=== PATIENT | male | born 1935 | race Two or more races ===

== ENCOUNTER 2016-04-09 01:54 | Inpatient (IN) | payer MEDICARE ==
[~2016-04-09] VITALS: Ht 172.7 cm; Wt 63.5 kg
[~2016-04-09 01:54] MED LIST: DIVA500T7 PO; DOCU-170 PO; DONE10TA44 PO; LEVO500T15 PO; LEVO50TA8 PO; OLAN5TAB3 PO; TRAZ-147 PO
[2016-04-09] MEDS ORDERED: TDAP [DIPH/PERTUSSIS/TET] 0.5 ML VIAL IM ONE (02:30)
[2016-04-09 02:52] LABS: WHITE BLOOD COUNT (AUTO) 10.1 K/uL (4.3-11.0)
[2016-04-09 02:53] LABS: BASOPHILS % (AUTO) 0.4 % (0.0-2.0); DIFF TOTAL % 100 %; EOSINOPHILS # (AUTO) 0.2 /CMM (0.0-0.7); EOSINOPHILS % (AUTO) 2.4 % (0.0-6.0); HEMATOCRIT 36 % (39-51); HEMOGLOBIN 11.8 g/dL (13.5-17.5); LYMPHOCYTES # (AUTO) 1.9 /CMM (0.8-4.8); LYMPHOCYTES % (AUTO) 18.5 % (20.0-44.0); MEAN CORPUSCULAR HEMOGLOBIN 30 PG (26.0-33.0); MEAN CORPUSCULAR HGB CONC 32 g/dl (31.0-36.0); MEAN CORPUSCULAR VOLUME 92 fL (80-96); MONOCYTES % (AUTO) 9.7 % (2.0-12.0); PLATELET COUNT (AUTO) 222 /CMM (150-450); RED BLOOD CELL COUNT(AUTO) 3.95 MIL/uL (4.5-6.0)
[2016-04-09 03:03] LABS: INR 1.06 (0.87-1.13); PROTHROMBIN TIME 11.5 SECS (9.5-12.7)
[2016-04-09 03:07] LABS: ALANINE AMINOTRANSFERASE 15 U/L (12-78); ALBUMIN 2.9 g/dL (3.4-5.0); ANION GAP 10 (5-14); ASPARTATE AMINOTRANSFERASE 15 U/L (15-37); BILIRUBIN,DIRECT 0.1 mg/dL (0.0-0.2); BILIRUBIN,TOTAL 0.3 mg/dL (0.2-1.0); CALCIUM, SERUM 8.8 mg/dL (8.5-10.1); CARBON DIOXIDE 32 mmol/L (21-32); CHLORIDE 102 mmol/L (98-107); CREATININE 1.1 mg/dL (0.6-1.3); GLUCOSE 94 mg/dL (74-106); INDIRECT BILIRUBIN 0.2 mg/dL (0.0-1.1); POTASSIUM 4.2 mmol/L (3.5-5.1); SODIUM SERUM 140 mmol/L (136-145); TOTAL PROTEIN, SERUM 7.2 g/dL (6.4-8.2); UREA NITROGEN, BLOOD 24 mg/dL (7-18)
[2016-04-09 03:09] LABS: TROPONIN I < 0.017 ng/mL (0.00-0.056)
[2016-04-09] MEDS ORDERED: ONDANSETRON HCL/PF 4 MG/2 ML VIAL IVP PRN (04:00)
[2016-04-09] MEDS ORDERED: HYDROCODONE/APAP 5/325MG 1 EACH TABLET PO PRN (04:00)
[2016-04-09] MEDS ORDERED: MAG HYDROX/AL HYDROX/SIMETH 30 ML UDC PO PRN (04:00)
[2016-04-09] MEDS ORDERED: Z GUARD REMEDY 2 OZ OINT TP PRN (04:00)
[2016-04-09] MEDS ORDERED: MAGNESIUM HYDROXIDE 30 ML UDC PO PRN (04:00)
[2016-04-09] MEDS ORDERED: ACETAMINOPHEN 325 MG TABLET PO PRN (04:00)
[2016-04-09 08:00] VITALS: BP 119/67
[2016-04-09] MEDS: DOCUSATE SODIUM 100 MG CAPSULE PO SCH ×2 (08:19→17:16)
[2016-04-09] MEDS: PANTOPRAZOLE 40 MG TABLET.DR PO SCH (08:20)
[2016-04-09] MEDS: LEVOTHYROXINE SODIUM 50 MCG TABLET PO SCH (08:20)
[2016-04-09] MEDS: OLANZAPINE 5 MG TABLET PO SCH ×2 (08:20→17:16)
[2016-04-09] MEDS ORDERED: LEVOTHYROXINE SODIUM 50 MCG TABLET PO SCH (09:00)
[2016-04-09 10:14] VITALS: BP_SYST 111; BP_SYST 112; BP_SYST 119; BP_DIAS 59; BP_DIAS 62; BP_DIAS 68
[2016-04-09] MEDS ORDERED: IV SET PRIMARY PUMP SET 1 EA INFUS.SET MC ONE (10:48)
[2016-04-09 10:50] LABS: THYROID STIMULATING HORMONE 4.164 uIU/mL (0.358-3.74)
[2016-04-09] MEDS: IV NS 0.9% 1,000 ML IV PRN ×2 (10:55→18:15)
[2016-04-09 12:00] VITALS: BP 106/60
[2016-04-09 16:00] VITALS: BP 132/80
[2016-04-09] MEDS: DIVALPROEX SODIUM 500 MG TABLET.DR PO SCH (17:16)
[2016-04-09] MEDS: DONEPEZIL 5 MG TABLET PO SCH (17:16)
[2016-04-09 20:00] VITALS: BP 152/69
[2016-04-09] MEDS: TRAZODONE 50 MG TABLET PO SCH (22:06)
[2016-04-10] VITALS: BP 123/66
[2016-04-10 04:00] VITALS: BP 130/57
[2016-04-10] MEDS: IV NS 0.9% 1,000 ML IV PRN ×2 (06:22→19:12)
[2016-04-10 07:07] LABS: BASOPHILS % (AUTO) 0.5 % (0.0-2.0); DIFF TOTAL % 100 %; EOSINOPHILS # (AUTO) 0.2 /CMM (0.0-0.7); EOSINOPHILS % (AUTO) 3.4 % (0.0-6.0); HEMATOCRIT 34 % (39-51); HEMOGLOBIN 11.2 g/dL (13.5-17.5); LYMPHOCYTES # (AUTO) 1.9 /CMM (0.8-4.8); LYMPHOCYTES % (AUTO) 26.1 % (20.0-44.0); MEAN CORPUSCULAR HEMOGLOBIN 30 PG (26.0-33.0); MEAN CORPUSCULAR HGB CONC 33 g/dl (31.0-36.0); MEAN CORPUSCULAR VOLUME 91 fL (80-96); MONOCYTES # (AUTO) 0.8 /CMM (0.1-1.30); MONOCYTES % (AUTO) 11.3 % (2.0-12.0); NEUTROPHILS # (AUTO) 4.3 /CMM (1.8-8.9); NEUTROPHILS % (AUTO) 58.7 % (43.0-81.0); PLATELET COUNT (AUTO) 185 /CMM (150-450); RED BLOOD CELL COUNT(AUTO) 3.69 MIL/uL (4.5-6.0); WHITE BLOOD COUNT (AUTO) 7.4 K/uL (4.3-11.0)
[2016-04-10 07:28] LABS: ALBUMIN 2.4 g/dL (3.4-5.0); BILIRUBIN,TOTAL 0.3 mg/dL (0.2-1.0); CALCIUM, SERUM 8.2 mg/dL (8.5-10.1); CREATININE 0.9 mg/dL (0.6-1.3); PHOSPHORUS 3.2 mg/dL (2.5-4.9); POTASSIUM 4.4 mmol/L (3.5-5.1); TOTAL PROTEIN, SERUM 6.4 g/dL (6.4-8.2)
[2016-04-10 08:00] VITALS: BP 132/69
[2016-04-10] MEDS: OLANZAPINE 5 MG TABLET PO SCH ×2 (08:46→17:08)
[2016-04-10] MEDS: LEVOTHYROXINE SODIUM 50 MCG TABLET PO SCH (08:46)
[2016-04-10] MEDS: DOCUSATE SODIUM 100 MG CAPSULE PO SCH ×2 (08:46→16:38)
[2016-04-10] MEDS: PANTOPRAZOLE 40 MG TABLET.DR PO SCH (08:46)
[2016-04-10 15:57] VITALS: BP 103/63
[2016-04-10 16:00] VITALS: BP 103/63
[2016-04-10] MEDS: DIVALPROEX SODIUM 500 MG TABLET.DR PO SCH (17:08)
[2016-04-10] MEDS: DONEPEZIL 5 MG TABLET PO SCH (17:08)
[2016-04-10 20:00] VITALS: BP_SYST 120; BP_SYST 123; BP_DIAS 51; BP_DIAS 61; BP_DIAS 74
[2016-04-10] MEDS: TRAZODONE 50 MG TABLET PO SCH (21:12)
[2016-04-11] MEDS: ZOLPIDEM TARTRATE 5 MG TABLET PO PRN ×2 (02:15→22:53)
[2016-04-11] MEDS ORDERED: ALBUTEROL FS 2.5 MG/0.5 ML VIAL.NEB ONE (03:40)
[2016-04-11] MEDS: ALBUTEROL FS 2.5 MG/0.5 ML VIAL.NEB NEB PRN ×2 (03:51→22:56)
[2016-04-11] MEDS: IV NS 0.9% 1,000 ML IV PRN ×2 (05:05→15:12)
[2016-04-11 07:43] VITALS: BP 139/71
[2016-04-11 08:00] VITALS: BP 139/71
[2016-04-11 08:08] LABS: *SPE ALBUMIN 2.9 g/dL (2.9-4.4)
[2016-04-11 08:11] LABS: ALBUMIN 2.5 g/dL (3.4-5.0); BILIRUBIN,TOTAL 0.3 mg/dL (0.2-1.0); CREATININE 0.9 mg/dL (0.6-1.3); PHOSPHORUS 2.9 mg/dL (2.5-4.9); POTASSIUM 4.3 mmol/L (3.5-5.1); TOTAL PROTEIN, SERUM 6.6 g/dL (6.4-8.2)
[2016-04-11] MEDS: PANTOPRAZOLE 40 MG TABLET.DR PO SCH (08:14)
[2016-04-11] MEDS: OLANZAPINE 5 MG TABLET PO SCH ×2 (08:14→17:19)
[2016-04-11] MEDS: LEVOTHYROXINE SODIUM 50 MCG TABLET PO SCH (08:14)
[2016-04-11] MEDS: DOCUSATE SODIUM 100 MG CAPSULE PO SCH ×2 (08:14→17:19)
[2016-04-11 08:33] LABS: BASOPHILS % (AUTO) 0.3 % (0.0-2.0); DIFF TOTAL % 100 %; EOSINOPHILS # (AUTO) 0.2 /CMM (0.0-0.7); EOSINOPHILS % (AUTO) 2.9 % (0.0-6.0); HEMATOCRIT 34 % (39-51); HEMOGLOBIN 11.2 g/dL (13.5-17.5); LYMPHOCYTES # (AUTO) 1.3 /CMM (0.8-4.8); LYMPHOCYTES % (AUTO) 18.2 % (20.0-44.0); MEAN CORPUSCULAR HEMOGLOBIN 31 PG (26.0-33.0); MEAN CORPUSCULAR HGB CONC 33 g/dl (31.0-36.0); MEAN CORPUSCULAR VOLUME 92 fL (80-96); MONOCYTES # (AUTO) 0.8 /CMM (0.1-1.30); MONOCYTES % (AUTO) 10.8 % (2.0-12.0); NEUTROPHILS % (AUTO) 67.8 % (43.0-81.0); PLATELET COUNT (AUTO) 176 /CMM (150-450); RED BLOOD CELL COUNT(AUTO) 3.68 MIL/uL (4.5-6.0); WHITE BLOOD COUNT (AUTO) 7.3 K/uL (4.3-11.0)
[2016-04-11] MEDS ORDERED: SECONDARY IV SET 1 EA INFUS.SET MC ONE (10:50)
[2016-04-11] MEDS: Magnesium 1GM/D5W 100ML PREMIX 100 ML IV SCH ×2 (10:55→11:57)
[2016-04-11] MEDS ORDERED: Magnesium 1GM/D5W 100ML PREMIX 100 ML IV SCH (13:00)
[2016-04-11 16:00] VITALS: BP 150/78
[2016-04-11] MEDS: DIVALPROEX SODIUM 500 MG TABLET.DR PO SCH (17:19)
[2016-04-11] MEDS: DONEPEZIL 5 MG TABLET PO SCH (17:19)
[2016-04-11 20:00] VITALS: BP 120/74
[2016-04-11] MEDS: TRAZODONE 50 MG TABLET PO SCH (21:22)
[2016-04-11 22:00] VITALS: BP 120/74
[2016-04-12] MEDS: IV NS 0.9% 1,000 ML IV PRN ×2 (00:14→09:31)
[2016-04-12 07:52] LABS: BASOPHILS % (AUTO) 0.6 % (0.0-2.0); DIFF TOTAL % 100 %; EOSINOPHILS # (AUTO) 0.3 /CMM (0.0-0.7); EOSINOPHILS % (AUTO) 4.3 % (0.0-6.0); HEMATOCRIT 34 % (39-51); HEMOGLOBIN 11.2 g/dL (13.5-17.5); LYMPHOCYTES # (AUTO) 1.9 /CMM (0.8-4.8); LYMPHOCYTES % (AUTO) 30.5 % (20.0-44.0); MEAN CORPUSCULAR HEMOGLOBIN 31 PG (26.0-33.0); MEAN CORPUSCULAR HGB CONC 33 g/dl (31.0-36.0); MEAN CORPUSCULAR VOLUME 92 fL (80-96); MONOCYTES # (AUTO) 0.6 /CMM (0.1-1.30); NEUTROPHILS # (AUTO) 3.5 /CMM (1.8-8.9); NEUTROPHILS % (AUTO) 55.6 % (43.0-81.0); PLATELET COUNT (AUTO) 173 /CMM (150-450); RED BLOOD CELL COUNT(AUTO) 3.64 MIL/uL (4.5-6.0); WHITE BLOOD COUNT (AUTO) 6.3 K/uL (4.3-11.0)
[2016-04-12] MEDS: DOCUSATE SODIUM 100 MG CAPSULE PO SCH (08:11)
[2016-04-12] MEDS: LEVOTHYROXINE SODIUM 50 MCG TABLET PO SCH (08:11)
[2016-04-12] MEDS: OLANZAPINE 5 MG TABLET PO SCH (08:11)
[2016-04-12] MEDS: PANTOPRAZOLE 40 MG TABLET.DR PO SCH (08:11)
[2016-04-12 08:24] LABS: CALCIUM, SERUM 8.2 mg/dL (8.5-10.1); CREATININE 0.9 mg/dL (0.6-1.3); PHOSPHORUS 3.3 mg/dL (2.5-4.9); POTASSIUM 4.8 mmol/L (3.5-5.1)
[2016-04-12 08:39] VITALS: BP 136/76
== END 2016-04-12 15:17 | DRG 73 ==
LOC: ER 01:56 → TELE 05:01 → MED 04-10 09:45
PROVIDERS: ADMIT Internal Medicine; ATTEND Internal Medicine
DX: G90.8 Other disorders of autonomic nervous system (principal); E43 Unspecified severe protein-calorie malnutrition; S01.01XA Laceration without foreign body of scalp, initial encounter; G30.9 Alzheimer's disease, unspecified; W05.0XXA Fall from non-moving wheelchair, initial encounter; Y92.129 Unspecified place in nursing home as the place of occurrence of the external cause; R55 Syncope and collapse; D64.9 Anemia, unspecified; I25.10 Atherosclerotic heart disease of native coronary artery without angina pectoris; F02.80 Dementia in other diseases classified elsewhere, unspecified severity, without behavioral disturbance, psychotic disturbance, mood disturbance, and anxiety; E03.9 Hypothyroidism, unspecified; I10 Essential (primary) hypertension; Z68.21 Body mass index [BMI] 21.0-21.9, adult; Z68.27 Body mass index [BMI] 27.0-27.9, adult
CPT/HCPCS: 36415; 70450-TC; 71010-TC; 72125-TC; 80048-TC; 80053-TC; 80061-TC; 80076-TC; 82728-TC; 82962-TC; 83540-TC; 83735-TC; 84100-TC; 84155; 84165; 84439-TC; 84443-TC; 84484-TC; 85025-TC; 85730-TC; 87081-TC; 93307-TC; 94799-TC; A4606; A6403; J3475; J7030; Z7610

== ENCOUNTER 2017-03-31 21:05 | Inpatient (IN) | payer MEDICARE, OTHER ==
[~2017-03-31] VITALS: Ht 175.3 cm; Wt 46.3 kg
[~2017-03-31 21:05] MED LIST changes: -DOCU-170 PO; +DOCU100C36 PO; -LEVO500T15 PO; +LEVO500T75 PO
--- NOTE | 2017-03-31 21:15 | NUR ---
PT CAROLE FROM [facility]. HERE FOR MEDICAL EVAL PRIOR TO PSYCH ADMISSION. PER REPORT, PT IS AGRESSIVE, CONFUSED. HITTING STAFF AT THE FACILITY. WAS GIVEN IM SHOT OF ATIVAN PRIOR TO TRANSFER. PT STILL COMBATIVE MEDICAL NURSE. AWAITING MD MCKENZIE.
--- NOTE | 2017-03-31 21:25 | NUR ---
DR ZENG AT BEDSIDE FOR EVAL.
[2017-03-31] MEDS ORDERED: LORAZEPAM INJ 2 MG/ML VIAL ONE (21:39)
--- NOTE | 2017-03-31 21:45 | NUR ---
VIRTUAL ASSISTANT FOR ADVERTISERS AT BEDSIDE FOR BLOOD DRAW.
[2017-03-31 21:48] LABS: BASOPHILS # (AUTO) 0.1 /CMM (0.0-0.2); BASOPHILS % (AUTO) 0.7 % (0.0-2.0); EOSINOPHILS # (AUTO) 0.1 /CMM (0.0-0.7); EOSINOPHILS % (AUTO) 1.1 % (0.0-6.0); HEMATOCRIT 26 % (39-51); HEMOGLOBIN 8.8 g/dL (13.5-17.5); LYMPHOCYTES # (AUTO) 2.3 /CMM (0.8-4.8); LYMPHOCYTES % (AUTO) 23.2 % (20.0-44.0); MEAN CORPUSCULAR HEMOGLOBIN 29 PG (26.0-33.0); MEAN CORPUSCULAR HGB CONC 34 g/dl (31.0-36.0); MEAN CORPUSCULAR VOLUME 84 fL (80-96); MONOCYTES # (AUTO) 0.7 /CMM (0.1-1.30); NEUTROPHILS # (AUTO) 6.5 /CMM (1.8-8.9); PLATELET COUNT (AUTO) 258 /CMM (150-450); RDW COEFFICIENT OF VARIATION 14.7 (11.5-15.0); RED BLOOD CELL COUNT(AUTO) 3.08 MIL/uL (4.5-6.0); WHITE BLOOD COUNT (AUTO) 9.7 K/uL (4.3-11.0)
[2017-03-31] MEDS ORDERED: LORAZEPAM INJ 2 MG/ML VIAL IM ONE (22:00)
--- NOTE | 2017-03-31 22:13 | NUR ---
PT IS STILL AGITATED. TRYING TO GET OUT OF BED. HITTING STAFF. DR ZENG AWARE. MEDICATED ORDERED. SEE EMAR.
[2017-03-31 22:36] LABS: CARBON DIOXIDE 30 mmol/L (21-32); CHLORIDE 103 mmol/L (98-107); CREATININE 0.8 mg/dL (0.6-1.3); GLUCOSE 102 mg/dL (74-106); POTASSIUM 4.3 mmol/L (3.5-5.1); SODIUM SERUM 137 mmol/L (136-145); UREA NITROGEN, BLOOD 33 mg/dL (7-18)
[2017-03-31 22:39] LABS: ALCOHOL, BLOOD < 3 mg/dL (0-0)
[2017-03-31 22:55] LABS: APPEARANCE,URINE CLEAR (CLEAR); BILIRUBIN,URINE NEGATIVE (NEGATIVE); BLOOD, URINE TRACE-INTA Ery/uL (NEGATIVE); COLOR,URINE YELLOW (YELLOW); KETONES,URINE NEGATIVE (NEGATIVE); LEUKOCYTE ESTERASE ,URINE 2+ (NEGATIVE); NITRITE, URINE NEGATIVE (NEGATIVE); PROTEIN,URINE NEGATIVE (NEGATIVE); UGLUCOSE NEGATIVE (NEGATIVE); UROBILINOGEN,URINE 0.2 EU/dL (0.2)
--- NOTE | 2017-03-31 23:24 | NUR ---
CALLED ART CLINICIAN FOR PSYCH EVAL
[2017-03-31 23:34] LABS: BACTERIA,URINE None seen /HPF (None Seen)
[2017-03-31 23:35] LABS: SQUAMOUS EPITHELIAL CELL,UR Rare /HPF (None Seen)
--- NOTE | 2017-03-31 23:47 | NUR ---
REPORT TO CHARGE NURSE CHERYL FOR ALEXEI.
[2017-04-01] MEDS ORDERED: CIPROFLOXACIN HCL 500 MG TABLET PO ONE
[2017-04-01] MEDS ORDERED: CIPROFLOXACIN HCL 500 MG TABLET ONE (00:29)
[2017-04-01] MEDS ORDERED: IV NS 0.9% 1,000 ML IV ONE (00:30)
[2017-04-01] MEDS ORDERED: HYDROCODONE/APAP 5/325MG 1 EACH TABLET PO PRN ×2 (00:30→09:15)
[2017-04-01] MEDS ORDERED: ONDANSETRON HCL/PF 4 MG/2 ML VIAL IVP PRN ×2 (00:30→09:15)
[2017-04-01] MEDS ORDERED: MAG HYDROX/AL HYDROX/SIMETH 30 ML UDC PO PRN ×2 (00:30→09:15)
[2017-04-01] MEDS ORDERED: ZOLPIDEM TARTRATE 5 MG TABLET PO PRN ×2 (00:30→09:15)
[2017-04-01] MEDS ORDERED: MAGNESIUM HYDROXIDE 30 ML UDC PO PRN ×2 (00:30→09:15)
[2017-04-01] MEDS ORDERED: ACETAMINOPHEN 325 MG TABLET PO PRN ×2 (00:30→09:15)
[2017-04-01] MEDS ORDERED: Z GUARD REMEDY 2 OZ OINT TP PRN ×2 (00:30→09:15)
--- NOTE | 2017-04-01 02:33 | NUR ---
81 Y/O IN BED 09 REMAINS CONFUSED. PT DIAPER VERY WET. PT CLEANED, SHEETS CHANGED, PADS PUT IN PLACE, AND NEW DIAPER PLACED ON PT. PT APPERS LESS AGITATED AFTER CHANGE.
--- NOTE | 2017-04-01 03:17 | NUR ---
PT CONTINUES TO TRY TO GET OUT OF BED, INSPITE OF THE RESTRAINTS
--- NOTE | 2017-04-01 03:30 | NUR ---
PT BECOMES VERY AGITATED WHEN TRYING TO START IV. ATTEMPTS TO HIT YOU WITH HIS HEAD. DIGS INTO HIS OWN HAND WITH HIS FINGER NAILS. ATTEMPTS TO KICK YOU.
[2017-04-01] MEDS ORDERED: CEFTRIAXONE 1 G VIAL ONE ×2 (05:27→23:16)
[2017-04-01] MEDS: CEFTRIAXONE 1 G in IV D5W 50 ML IV SCH ×2 (06:16→23:46)
--- NOTE | 2017-04-01 06:17 | NUR ---
IV FINALLY OBTAINED. ROCEPHIN GIVEN
[2017-04-01] MEDS ORDERED: LORAZEPAM INJ 2 MG/ML VIAL ONE (06:23)
[2017-04-01] MEDS ORDERED: LORAZEPAM INJ 2 MG/ML VIAL IM ONE (06:30)
--- NOTE | 2017-04-01 06:30 | NUR ---
ATIVAN GIVEN IV PER ER .
--- NOTE | 2017-04-01 08:31 | NUR ---
Patient is resting comfortably in bed with eyes closed. Easily aroused. VSS.
[2017-04-01] MEDS ORDERED: OLANZAPINE 5 MG TABLET ONE (09:03)
[2017-04-01] MEDS ORDERED: DOCUSATE SODIUM LIQ 100 MG/10 ML UDC ONE (09:03)
[2017-04-01] MEDS: DOCUSATE SODIUM 100 MG CAPSULE PO SCH ×2 (09:05→17:30)
[2017-04-01] MEDS: OLANZAPINE 5 MG TABLET PO SCH ×2 (09:06→17:30)
--- NOTE | 2017-04-01 10:28 | NUR ---
R FA G 20 IV SALINE LOCK
--- NOTE | 2017-04-01 10:34 | NUR ---
REPORT GIVEN TO NURSE CHARLES [phone] MS
--- NOTE | 2017-04-01 11:10 | NUR ---
MS/RN ADMITTING NOTES RECEIVED PATIENT FROM ER VIA [facility] WITH ADMITTING DIAGNOSIS OF UTI, PAST MEDICAL HISTORY OF DEMENTIA WITH ALZHEIMER, HTN, SCHIZOPHRENIA, ANEMIA, HYPOTHYROIDISM. UPON ASSESSMENT PATIENT ALERT AND ORIENTED X1, DEMENTED UNABLE TO VERBALIZED NEEDS, APPEARS SLIGHTLY AGITATED. TRACH IN PERSON WITH NO 02 ON ROOM AIR SATING 99%. VITAL SIGNS STABLE AND WNL. GTUBE IN PLACE WITH NO FEEDINGS AT THIS TIME. IV TO RIGHT FA 22G INTACT INFUSING NS FOR GENTLE HYDRATION. PATIENT BEDBOUND, UPPER EXT CONTRACTED, LOW EXT WEAKENS, MULTIPLE SKIN TEARS TO BILATERAL UPPER EXT AND HAND. ADMITTING ORDERS PENDING. WILL CONTINUE TO MONITOR
--- NOTE | 2017-04-01 13:36 | NUR ---
ms rn notes Spoke to Larry MCBRIDE regarding patient feeding and ordered fibersource @20 ml/hr and to increase 10 every 4 hrs to reach goal of 40ml/hr and for dietary consult, psych consult ordered and informed Dr. Valladares. All orders carried out and noted. Will continue to monitor accordingly.
--- NOTE | 2017-04-01 15:40 | NUR ---
ms rn notes Spoke to Larry MCBRIDE and informed regarding patient condition who is agitated and ordered Ativan 0.5 mg IV Q4hrs PRN. All orders carried out and noted. Will continue to monitor accordingly.
[2017-04-01 16:00] VITALS: BP 109/60
[2017-04-01] MEDS: LORAZEPAM INJ 2 MG/ML VIAL IV PRN ×2 (16:01→20:28)
[2017-04-01] MEDS ORDERED: OLANZAPINE 5 MG TABLET PO SCH (18:00)
[2017-04-01] MEDS ORDERED: DIVALPROEX SODIUM 500 MG TABLET.DR PO SCH ×2 (18:00)
--- NOTE | 2017-04-01 18:41 | NUR ---
MS/RN NOTS PATIENT RESTING IN BED AGITATED, RESTLESS, CONSTANTLY TRYING TO GET OUT OF BED, GETS COMBATIVE WHEN ASSISTING BACK TO BED, YELLING. NO CHANGES OF CONDITION NOTED. ALL DUE MEDICATIONS GIVEN ALL NEEDS MET AND ATTENDED. PATIENT KEPT CLEAN AND DRY,GTUBE FEEDING INFUSING AT 30CC/HR. SAFETY MEASURES RENDERED , CALL LIGHT PLACED WITHIN EASY REACH. WILL ENDORSE CARE TO BUSINESS PROJECT ANALYST FOR ALEXEI
--- NOTE | 2017-04-01 19:15 | NUR ---
RN OPEN NOTES RECEIVED PATIENT AWAKE IN BED. A/O X1. PATIENT PRESENTS CONFUSED, AGITATED AND REPEATED ATTEMPTING TO GET OUT OF BED. NO SIGNS OF DISTRESS OR DISCOMFORT. BREATHING EVEN AND UNLABORED. IV ACCESS RFA, PATENT AND INTACT, NO SIGNS OF REDNESS OR INFILTRATION. BED IN LOW LOCKED POSITION WITH SIDE RAILS X3. CALL LIGHT WITHIN REACH. WILL CONTINUE TO MONITOR.
[2017-04-01 20:00] VITALS: BP_SYST 131; BP_SYST 61; BP_DIAS 61
--- NOTE | 2017-04-01 21:00 | NUR ---
RN NOTES PATIENT VERY AGITATED, CONTINUOUSLY ATTEMPTING TO GET OF BED, VERY COMBATIVE HITTING AND KICKING WHEN TRYING TO ASSIST PATIENT BACK INTO THE BED. ATIVAN .5MG WAS GIVEN FOR AGITATION. NOTIFIED DR. DE SANTIAGO, ORDER GIVEN FOR BILATERAL WRIST RESTRAINTS. WILL CARRYOUT ORDERS AND CONTINUE TO MONITOR.
[2017-04-01] MEDS ORDERED: DONEPEZIL 5 MG TABLET PO SCH (22:00)
[2017-04-01] MEDS ORDERED: TRAZODONE 50 MG TABLET PO SCH (22:00)
[2017-04-02] MEDS: LORAZEPAM INJ 2 MG/ML VIAL IV PRN ×3 (05:08→23:58)
[2017-04-02] MEDS: FIBERSOURCE HN 1,000 ML BOTTLE GT PRN (05:09)
--- NOTE | 2017-04-02 06:44 | NUR ---
RN CLOSING NOTES PATIENT RESTING IN BED, EASILY AROUSABLE. A/O X1. NO SIGNS OF DISTRESS OR DISCOMFORT. BREATHING EVEN AND UNLABORED. IV ACCESS RFA, PATENT AND INTACT, NO SIGNS OF REDNESS OR INFILTRATION. GTUBE INTACT WITH FEEDING RUNNING, PATIENT TOLERATING WELL WITH NO RESIDUAL NOTED THROUGHOUT SHIFT. ON BILATERAL SOFT WRIST RESTRAINTS WITH NO CIRCULATION OR SKIN ISSUES NOTED. ALL NEEDS MET. NO SIGNIFICANT CHANGES THROUGH THE NIGHT. BED IN LOW LOCKED POSITION WITH SIDE RAILS X3. CALL LIGHT WITHIN REACH. WILL ENDORSE TO AM SHIFT FOR ALEXEI.
[2017-04-02 08:00] VITALS: BP 130/74
--- NOTE | 2017-04-02 08:00 | NUR ---
RN NOTES RECEIVED PATIENT IN THE BED SLEEPING, AROUSE WHEN CALLED NAME OR TOUCHED, PATIENT TRACHEA , INTACT, HOB ELEVATES, . PATIENT ON G-TUBE FEEDING ON FIBERSOURCE 60ML/HR INTACT, RESIDUAL 50ML, AND PLACEMENT CHECKED, IV ACCESS ON RIGHT FOREARM INTACT, V/S TAKEN STABLE, PATIENT TOTAL CARE, NEEDS ATTENDED ANTICIPATED, ASSIST TURN AND REPOSITION Q 2 HR, CALL LIGHT WITHIN TO REACH. CONTINUED MONITORING.
--- NOTE | 2017-04-02 08:00 | NUR ---
RN NOTES PATIENT ALSO SOFT WRIST RESTRAIN BILATERAL WRIST, CHECKED CIRCULATION Q 2 HR FOR PULING TRACHEA, AND TRYING CLAIMING OUT OF BED. CONTINUED MONITORING.
[2017-04-02] MEDS: DOCUSATE SODIUM 100 MG CAPSULE PO SCH ×2 (10:00→18:03)
[2017-04-02] MEDS: OLANZAPINE 5 MG TABLET PO SCH ×2 (10:00→18:03)
--- NOTE | 2017-04-02 12:53 | NUR ---
RN NOTES PATIENT STILL SLEEPING, NO ACUTE RESPIRATORY DISTRESS, SCHEDULED MEDICATION ADMINISTERED VIA G-TUBE, PATIENT TOLERATED WELL, ASSIST TURN AND REPOSITION Q 2 HR, CALL LIGHT WITHIN TO REACH, HOB ELEVATED, CONTINUED MONITORING WITH HELP OF LINE INSTALLER.
[2017-04-02 16:00] VITALS: BP 118/70
--- NOTE | 2017-04-02 16:00 | NUR ---
RN NOTES PATIENT YELLING , SCREAMING TRYING GET OUT OF BED, , NON COOPERATIVE, PARANOID, ADMINISTERED ATIVAN 0.5 MG/ML IV PUSH PRESCRIBED, V/S TAKEN BP- 120/53, P-72. CONTINUED MONITORING. 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
--- NOTE | 2017-04-02 16:55 | NUR ---
RN NOTES PATIENT PULL TRACHEA OUT, CALLED RT FOR PUT IT BACK. BUT UNABLE TO DO IT PATIENT HAS NO RESPIRATORY DISTRESS,, RESPIRATION EVEN, LUNGS SOUNDS EVEN, , CALLED AND NOTIFIED Dr. TERAN ABOUT PATIENT'S CONDITION. PER DR CROSS NEW ORDER CONTINUE MONITORING.
[2017-04-02] MEDS ORDERED: VALPROIC ACID 250 MG/5 ML UDC GT SCH (18:00)
[2017-04-02] MEDS ORDERED: ZOLPIDEM TARTRATE 5 MG TABLET GT PRN (18:08)
[2017-04-02] MEDS ORDERED: MAGNESIUM HYDROXIDE 30 ML UDC GT PRN (18:09)
[2017-04-02] MEDS ORDERED: MAG HYDROX/AL HYDROX/SIMETH 30 ML UDC GT PRN (18:10)
[2017-04-02] MEDS: VALPROIC ACID 250 MG/5 ML UDC GT SCH (18:39)
--- NOTE | 2017-04-02 19:00 | NUR ---
RN NOTES PATIENT IN THE BED, NO ACUTE RESPIRATORY DISTRESS, SCHEDULED MEDICATION ADMINISTERED VIA G-TUBE, V/S STABLE, HOB ELEVATED, PATIENT ON MRSA OF NARES. PATIENT ON SOFT RESTRAIN BILATERAL HANDS, CHECKED CIRCULATION Q2 HR, NEEDS ATTENDED AND ANTICIPATED, MEDICATION WERE GIVEN FOR ANXIETY EFFECTIVE, PATIENT CALM AT THIS TIME, CALL LIGHT WITHIN TO REACH, CONTINUED MONITORING. ENDORSED ONCOMING NURSE FOR ALEXEI.
--- NOTE | 2017-04-02 19:20 | NUR ---
RN OPEN NOTES RECEIVED PATIENT AWAKE IN BED. A/O X1. NO SIGNS OF DISTRESS OR DISCOMFORT. BREATHING EVEN AND UNLABORED. PER AM SHIFT PATIENT REMOVED MD HERNÁN AWARE. IV ACCESS RFA, PATENT AND INTACT, NO SIGNS OF REDNESS OR INFILTRATION. ON BILATERAL SOFT WRIST RESTRAINTS WITH NO SKIN OR CIRCULATION ISSUES NOTED. GTUBE INTACT WITH FEEDING RUNNING, PATIENT TOLERATING WELL. BED IN LOW LOCKED POSITION WITH SIDE RAILS X3. CALL LIGHT WITHIN REACH. WILL CONTINUE TO MONITOR.
[2017-04-02 20:00] VITALS: BP 113/66
[2017-04-02] MEDS: DONEPEZIL 5 MG TABLET GT SCH (21:48)
[2017-04-02] MEDS: TRAZODONE 50 MG TABLET GT SCH (21:48)
[2017-04-02] MEDS: MUPIROCIN OINT 2% 22 GM TUBE SCH (21:48)
[2017-04-02] MEDS: CEFTRIAXONE 1 G in IV D5W 50 ML IV SCH (23:53)
[2017-04-03] MEDS: FIBERSOURCE HN 1,000 ML BOTTLE GT PRN (02:28)
--- NOTE | 2017-04-03 03:35 | NUR ---
MS RN NOTE RECEIVED PT FROM 3RD FLOOR. ASLEEP, AROUSABLE. NO DISTRESS OR DISCOMFORT NOTED. NO S/S OF PAIN NOTED. PT IN ISOLATION FOR MRSA NARES. GTF FIBERSOURCE INFUSING AT 40 ML/HR. TRACH SITE IS OPEN. PT IS ON BILATERAL SOFT WRIST RESTRAINTS. KEPT HIM DRY AND CLEAN. ALL NEEDS ATTENDED. VSS. CONTINUE TO MONITOR HIM. Addendum: 04/03/17 at 0406 by MARLENE HERNANDEZ RN REPORT GIVEN TO ME BY MED SURG NURSE JAKOB.
--- NOTE | 2017-04-03 03:46 | NUR ---
RN CLOSING NOTES TRANSFERRED PATIENT IN STABLE CONDITION TO MARLENE RN IN [place]. PATIENT RESTING IN BED, EASILY AROUSABLE. A/O X1. NO SIGNS OF DISTRESS OR DISCOMFORT. BREATHING EVEN AND UNLABORED. IV ACCESS IN RFA, PATENT AND INTACT, NO SIGNS OF REDNESS OR INFILTRATION. ON BILATERAL SOFT WRIST RESTRAINTS WITH NO SKIN OR CIRCULATION ISSUES NOTED. GTUBE INTACT WITH FEEDING RUNNING, PATIENT TOLERATING WELL, NO RESIDUAL NOTED. ALL PATIENT BELONGINGS WITH PATIENT. ALL NEED WERE MET AND ANTICIPATED.
[2017-04-03 04:00] VITALS: BP 94/61
--- NOTE | 2017-04-03 06:33 | NUR ---
MS RN NOTE PT IN BED ASLEEP, AROUSABLE. CONFUSED. NO DISTRESS OR DISCOMFORT NOTED. GTF INFUSING WELL 0 ML RESIDUAL NOTED. REPOSITION HIM Q2H, KEPT HIM DRY AND CLEAN. ALL NEEDS ATTENDED. SIDE RAILS UP X3 AND CALL LIGHT WITHIN REACH. WILL ENDORSE TO DAY SHIFT NURSE FOR CONTINUE TO CARE.
--- NOTE | 2017-04-03 07:30 | NUR ---
MS RN NOTES RECEIVED PATIENT IN BED ASLEEP, AROUSES TO NAME AND TOUCH, AO X 1, PATIENT WITH TRACHEA STOMA, CDI DRESSING, HOB ELEVATES, NO SIGNS OF PAIN, RFA G 20 FLUSHES WELL, SITE CLEAR, PATIENT ON G-TUBE FEEDING ON FIBERSOURCE 40ML/HR INTACT, RESIDUAL 0ML, PLACEMENT CHECKED, ON ACUTE MEDICAL RESTRAINT, CHECKED FOR CIRCULATION, WILL RELEASE Q 2HOURS. NEEDS ATTENDED ANTICIPATED, WILL ASSIST TURN AND REPOSITION Q 2 HR, CALL LIGHT WITHIN TO REACH. WILL CONTINUE TO MONITOR.
[2017-04-03 08:00] VITALS: BP 119/61
--- NOTE | 2017-04-03 09:30 | NUR ---
MS RN NOTES DUE MEDS GIVEN.
[2017-04-03] MEDS: OLANZAPINE 5 MG TABLET GT SCH ×2 (09:47→17:54)
[2017-04-03] MEDS: DOCUSATE SODIUM LIQ 100 MG/10 ML UDC GT SCH ×2 (09:47→17:55)
[2017-04-03] MEDS: VALPROIC ACID 250 MG/5 ML UDC GT SCH ×3 (09:47→17:55)
[2017-04-03] MEDS: MUPIROCIN OINT 2% 22 GM TUBE SCH ×2 (09:47→22:23)
[2017-04-03] MEDS: LORAZEPAM INJ 2 MG/ML VIAL IV PRN ×2 (14:46→21:03)
[2017-04-03 16:00] VITALS: BP 122/50
--- NOTE | 2017-04-03 18:53 | NUR ---
MS RN CLOSING NOTES PATIENT IN BED,CONFUSED, REMOVING HOSPITAL GOWN AND ATTEMPTING TO GET OUT OF BED DESPITE RESTRAINT. ASLEEP, AO X 1, PATIENT WITH TRACHEA STOMA, CDI DRESSING, HOB ELEVATES, NO SIGNS OF PAIN, RFA G 20 FLUSHES WELL, SITE CLEAR, PATIENT ON G-TUBE FEEDING ON FIBERSOURCE 40ML/HR INTACT, RESIDUAL 0ML, PLACEMENT CHECKED, ON ACUTE MEDICAL RESTRAINT, CHECKED FOR CIRCULATION, RELEASED Q 2HOURS. NEEDS ATTENDED, TURNED AND REPOSITIONED Q 2 HR, PM CARE DONE. CALL LIGHT WITHIN TO REACH. NO OTHER SIGNIFICANT CHANGE IN CONDITION. WILL ENDORSE TO NEXT SHIFT FOR ALEXEI.
--- NOTE | 2017-04-03 19:30 | NUR ---
Received patient in the bed.No unusual signs or symptoms observed or reported,no signs of discomfort or distress,resting quietly.
[2017-04-03 20:00] VITALS: BP 127/68
[2017-04-03] MEDS: OLANZAPINE 2.5 MG TABLET GT PRN (20:55)
[2017-04-03] MEDS: DONEPEZIL 5 MG TABLET GT SCH (22:00)
[2017-04-03] MEDS: TRAZODONE 50 MG TABLET GT SCH (22:45)
--- NOTE | 2017-04-03 23:00 | NUR ---
resting quietly,no problems
--- NOTE | 2017-04-04 01:00 | NUR ---
transferred to Room 105,no problems
[2017-04-04] MEDS: CEFTRIAXONE 1 G in IV D5W 50 ML IV SCH ×2 (02:00→23:36)
--- NOTE | 2017-04-04 03:00 | NUR ---
resting quietly,no problems
[2017-04-04 04:00] VITALS: BP 138/75
[2017-04-04 06:34] LABS: BASOPHILS % (AUTO) 0.5 % (0.0-2.0); EOSINOPHILS # (AUTO) 0.2 /CMM (0.0-0.7); EOSINOPHILS % (AUTO) 3.6 % (0.0-6.0); HEMATOCRIT 32 % (39-51); HEMOGLOBIN 10.6 g/dL (13.5-17.5); LYMPHOCYTES # (AUTO) 1.9 /CMM (0.8-4.8); LYMPHOCYTES % (AUTO) 29.9 % (20.0-44.0); MEAN CORPUSCULAR HEMOGLOBIN 29 PG (26.0-33.0); MEAN CORPUSCULAR HGB CONC 34 g/dl (31.0-36.0); MEAN CORPUSCULAR VOLUME 87 fL (80-96); MONOCYTES # (AUTO) 0.6 /CMM (0.1-1.30); MONOCYTES % (AUTO) 9.5 % (2.0-12.0); NEUTROPHILS # (AUTO) 3.5 /CMM (1.8-8.9); NEUTROPHILS % (AUTO) 56.5 % (43.0-81.0); PLATELET COUNT (AUTO) 301 /CMM (150-450); RDW COEFFICIENT OF VARIATION 15.7 (11.5-15.0); RED BLOOD CELL COUNT(AUTO) 3.64 MIL/uL (4.5-6.0); WHITE BLOOD COUNT (AUTO) 6.3 K/uL (4.3-11.0)
[2017-04-04 07:07] LABS: CALCIUM, SERUM 9.4 mg/dL (8.5-10.1); CARBON DIOXIDE 30 mmol/L (21-32); CHLORIDE 104 mmol/L (98-107); CREATININE 0.8 mg/dL (0.6-1.3); GLUCOSE 100 mg/dL (74-106); MAGNESIUM 2.4 mg/dL (1.8-2.4); POTASSIUM 4.1 mmol/L (3.5-5.1); SODIUM SERUM 141 mmol/L (136-145); UREA NITROGEN, BLOOD 25 mg/dL (7-18)
--- NOTE | 2017-04-04 07:38 | NUR ---
RN INITIAL NOTES RN RECEIVED PATIENT AWAKE IN BED.SLIGHTLY ANXIOUS APPEARS TO TRY TO GET OUT OF BED . PT IS A/O X1. NO SIGNS OF SOB NOTED . BREATHING EVEN AND UNLABORED. IV ACCESS RFA, PATENT AND INTACT, NO SIGNS OF REDNESS OR INFILTRATION. ON BILATERAL SOFT WRIST RESTRAINTS WITH NO SKIN OR CIRCULATION ISSUES NOTED. G-TUBE INTACT WITH FEEDING RUNNING AT 40 ML/HR , PATIENT TOLERATING WELL. BED IN LOW LOCKED POSITION WITH SIDE RAILS X3. CALL LIGHT WITHIN REACH. RN WILL CONTINUE TO MONITOR PATIENT THROUGHOUT THE DAY .
[2017-04-04] MEDS: VALPROIC ACID 250 MG/5 ML UDC GT SCH ×3 (08:33→17:28)
[2017-04-04] MEDS: OLANZAPINE 5 MG TABLET GT SCH ×2 (08:33→17:29)
[2017-04-04] MEDS: DOCUSATE SODIUM LIQ 100 MG/10 ML UDC GT SCH ×2 (08:33→17:28)
[2017-04-04] MEDS: MUPIROCIN OINT 2% 22 GM TUBE SCH ×2 (08:34→21:24)
[2017-04-04] MEDS: HYDROCODONE/APAP 5/325MG 1 EACH TABLET GT PRN (15:30)
[2017-04-04] MEDS: OLANZAPINE 2.5 MG TABLET GT PRN (15:31)
[2017-04-04 20:00] VITALS: BP 129/46
--- NOTE | 2017-04-04 20:00 | NUR ---
MS RN NOTES RECEIVED PTS ON BED AWAKE AND RESPONSIVE , ON R/A SATING 95% , ,NO SOB NO DISTRESS NO C/O OF PAIN AT THIS TIME , ON BILATERAL SOFT WRIST RESTRAINT D/ T PTS PULLING INVASIVE TUBING ON CONTACT ISOLATION MRSA NARES , PRECAUTIONARY MEASURES OBSERVED , ALL DUE MEDS GIVEN ORDERED PTS ON F/C INTACT AND PATENT DRAINING WITH YELLOWISH URINE OUTPUT .KEPT PTS CLEAN DRY AND COMFORTABLE, WILL CONTINUE TO MONITOR PTS.
[2017-04-04] MEDS: DONEPEZIL 5 MG TABLET GT SCH (21:23)
[2017-04-04] MEDS: TRAZODONE 50 MG TABLET GT SCH (21:23)
[2017-04-05] MEDS ORDERED: IV NS 0.9% 250 ML IV PRN (00:30)
--- NOTE | 2017-04-05 01:00 | NUR ---
ms rn notes pts noted screaming , ativan prn meds given as ordered with effect, pts calm down and sleep.will continue to monitor pts cont on gt feeding well tolerated.
[2017-04-05] MEDS: LORAZEPAM INJ 2 MG/ML VIAL IV PRN ×2 (01:02→18:02)
[2017-04-05 04:00] VITALS: BP 127/62
--- NOTE | 2017-04-05 05:17 | NUR ---
ms rn notes pts in bed asleep but easily arouse , v/s stable afebrile pts remains on bilateral restraint , to prevent pulling out invasive tubing , pts for d/c today to [facility]. all needs attended too ,kept pts clean dry and comfortable.will endorse to rn day shift for continuity of care.
--- NOTE | 2017-04-05 07:35 | NUR ---
MS RN OPENING NOTE PATIENT IS ALERT AND ORIENTED x1-2. NO FACIAL GRIMACING NOTED FOR PAIN. NO SOB OR DISTRESS NOTED. CALL LIGHT WITHIN REACH. SAFETY MEASURES IMPLEMENTED. G-TUBE IN PLACE, KEPT CLEAN DRY AND INTACT, TUBE FEEDING RUNNING AT THIS TIME AT 40 ML/HR TOLERATING WELL. IV IN RIGHT HAND INTACT AND PATENT NO REDNESS OR SWELLING NOTED. PATIENT IS ON BILATERAL RESTRAINTS FOR SAFETY, OFFERING BREAKS AND SAFETY CHECKS. LABS THIS MORNING AWAITING RESULTS. [facility] FO[facility]. WILL CONTINUE TO MONITOR THROUGHOUT SHIFT
[2017-04-05 08:00] VITALS: BP 104/60
[2017-04-05] MEDS: OLANZAPINE 5 MG TABLET GT SCH ×2 (08:44→17:01)
[2017-04-05] MEDS: VALPROIC ACID 250 MG/5 ML UDC GT SCH ×3 (08:45→16:54)
[2017-04-05] MEDS: MUPIROCIN OINT 2% 22 GM TUBE SCH ×2 (08:45→21:03)
[2017-04-05] MEDS: DOCUSATE SODIUM LIQ 100 MG/10 ML UDC GT SCH ×2 (08:45→16:54)
[2017-04-05] MEDS: FIBERSOURCE HN 1,000 ML BOTTLE GT PRN (08:50)
[2017-04-05] MEDS: OLANZAPINE 2.5 MG TABLET GT PRN (13:59)
--- NOTE | 2017-04-05 13:59 | NUR ---
MS RN NOTE PATIENT IS VERY AGITATED, YELLING AND SCREAMING ATTEMPTING TO GET OUT OF BED AND RESTRAINTS. PRN GIVEN. WILL CONTINUE TO MONITOR
--- NOTE | 2017-04-05 18:02 | NUR ---
MS RN NOTE PRN PREVIOUSLY GIVEN DID NOT WORK. PATIENT IS VERY AGITATED STILL AND RESTLESS, ATTEMPTING TO GET OUT OF BED. PRN ATIVAN GIVEN WILL REASSESS IN 15 MIN.
--- NOTE | 2017-04-05 18:35 | NUR ---
MS RN CLOSING NOTE NO NEW CHANGES NOTED THROUGHOUT SHIFT. NO PAIN AT THIS TIME. NO SOB OR DISTRESS NOTED. PRN ATIVAN GIVEN, EFFECTIVE. RIGHT HAND IV PULLED OUT AND REMOVED, NEW IV STARTED ON RIGHT UPPER ARM 22G INTACT AND PATENT NO REDNESS OR SWELLING NOTED. ALL DUE MEDICATIONS GIVEN ORDERED. ALL NURSING CARE NEEDS ATTENDED TO NEEDED. HAS BILATERAL RESTRAINTS FOR SAFETY. AWAITING SPEECH EVAL, POSSIBLE DISCHARGE TOMORROW. WILL ENDORSE TO REDUCING SALON ATTENDANT NURSE FOR ALEXEI
--- NOTE | 2017-04-05 19:15 | NUR ---
MS RN NOTES RECEIVED PT IN BED, AWAKE, CONFUSED, WITH ON AND OFF EPISODES OF TRYING TO GET OUT OF THE BED, SAFETY PRECAUTIONS OBSERVED. GT IS INTACT AND PATENT , GTF ONGOING AND QUIRINO WELL. IV SITE ON DIAMOND INTACT AND PATENT. ALL NEEDS ATTENDED AND MET. BED ON LOWEST LEVEL. CALL LIGHT WITHIN REACH. WILL CONT TO MONITOR.
[2017-04-05 20:00] VITALS: BP 107/68
[2017-04-05] MEDS: OLANZAPINE 2.5 MG TABLET GT SCH (21:02)
[2017-04-05] MEDS: TRAZODONE 50 MG TABLET GT SCH (22:26)
[2017-04-05] MEDS: DONEPEZIL 5 MG TABLET GT SCH (22:27)
[2017-04-06] MEDS: CEFTRIAXONE 1 G in IV D5W 50 ML IV SCH (00:57)
[2017-04-06] MEDS: OLANZAPINE 2.5 MG TABLET GT PRN (05:41)
--- NOTE | 2017-04-06 06:33 | NUR ---
MS RN NOTES PT IN BED, AWAKE, CONFUSED, WITH ON AND OFF EPISODES OF TRYING TO GET OUT OF THE BED, YELLING AND SCREAMING. SAFETY PRECAUTIONS AND REORIENTATION OBSERVED. GT IS INTACT AND PATENT , GTF ONGOING AND QUIRINO WELL. IV SITE ON DIAMOND INTACT AND PATENT. ALL NEEDS ATTENDED AND MET. BED ON LOWEST LEVEL. CALL LIGHT WITHIN REACH. WILL ENDORSE TO NEXT SHIFT FOR ALEXEI.
--- NOTE | 2017-04-06 08:00 | NUR ---
REFUSED VITAL SIGNS TO BE CHECKED. PT IS AGITATED AND KICKING.
[2017-04-06] MEDS: OLANZAPINE 2.5 MG TABLET GT SCH ×4 (09:07→17:32)
[2017-04-06] MEDS: DOCUSATE SODIUM LIQ 100 MG/10 ML UDC GT SCH ×2 (09:07→17:32)
[2017-04-06] MEDS: VALPROIC ACID 250 MG/5 ML UDC GT SCH ×3 (09:07→17:32)
[2017-04-06] MEDS: MUPIROCIN OINT 2% 22 GM TUBE SCH ×2 (09:08→20:59)
[2017-04-06] MEDS: FLUCONAZOLE (100 MG) 100 MG TABLET PO SCH (09:12)
--- NOTE | 2017-04-06 10:26 | NUR ---
SPEECH THERAPIST CAME TO DO SPEECH EVAL WITH PT BUT UNABLE BECAUSE PT SLEEPING.
[2017-04-06] MEDS: LORAZEPAM INJ 2 MG/ML VIAL IV PRN ×2 (14:21→21:00)
--- NOTE | 2017-04-06 18:25 | NUR ---
speech therapist was able to do swallow eval and stated that pt can have Pureed diet with honey thick liquids. followed up with [facility] regarding transfer per Dr Moffett but transfer wias not approved as of this time because pt still has GTube in place. lorazepam given once due to agitation and restlessness, Pop soft wrist restraints on for pt possibly pulling lines and interruption of treatment. incontinence care done. got in contact with worm farmer per Dr Moffett's request of bolus feeds in [facility] but no transfer will be done as of this time. Clamped PEG tube to prevent aspiration because pt continues to be restless. bed low and locked. call light within reached. bed alarm on. Hourly CARES rounding done. will attempt to feed pt. will continue to monitor
--- NOTE | 2017-04-06 19:40 | NUR ---
Unable to feed pt because of agitation and restlessness, pt is kicking and has been scooting down in bed. turned off PEG tube feeding due to restlessness. will cont to monitor.
[2017-04-06 20:00] VITALS: BP 148/50
--- NOTE | 2017-04-06 20:26 | NUR ---
MS INITIAL RN NOTES PT IN BED, AWAKE, CONFUSED, WITH ON AND OFF EPISODES OF TRYING TO GET OUT OF THE BED, YELLING AND SCREAMING. SAFETY PRECAUTIONS AND REORIENTATION OBSERVED. BILATERAL SOFT WRIST RESTRAIN RELEASED FOR ROM AND PROPER CIRCULATION ,GT IS INTACT AND PATENT , GTF ONGOING AND QUIRINO WELL. IV SITE ON DIAMOND INTACT AND PATENT. ALL NEEDS ATTENDED AND MET. BED ON LOWEST LEVEL. CALL LIGHT WITHIN REACH.
[2017-04-06] MEDS: OLANZAPINE 5 MG TABLET GT SCH (20:59)
[2017-04-06] MEDS: TRAZODONE 50 MG TABLET GT SCH (21:40)
[2017-04-06] MEDS: DONEPEZIL 5 MG TABLET GT SCH (21:40)
[2017-04-07] MEDS: FIBERSOURCE HN 1,000 ML BOTTLE GT PRN (05:58)
[2017-04-07 08:00] VITALS: BP_SYST 137; BP_SYST 140; BP_DIAS 62; BP_DIAS 89
[2017-04-07] MEDS: DOCUSATE SODIUM LIQ 100 MG/10 ML UDC GT SCH ×2 (09:40→16:34)
[2017-04-07] MEDS: FLUCONAZOLE (100 MG) 100 MG TABLET PO SCH (09:41)
[2017-04-07] MEDS: VALPROIC ACID 250 MG/5 ML UDC GT SCH ×3 (09:41→16:33)
[2017-04-07] MEDS: OLANZAPINE 2.5 MG TABLET GT SCH ×3 (09:41→16:34)
[2017-04-07] MEDS: MUPIROCIN OINT 2% 22 GM TUBE SCH ×2 (09:42→20:38)
[2017-04-07] MEDS ORDERED: Fibersource Hn GT (14:43)
[2017-04-07] MEDS ORDERED: OLAN5TAB3 GT (14:43)
[2017-04-07] MEDS ORDERED: OLAN2.5T3 GT ×2 (14:43)
[2017-04-07] MEDS ORDERED: VALP250S22 GT (14:43)
--- NOTE | 2017-04-07 18:53 | NUR ---
MS ANTONI NOTES, ENDORSING PATIENT TO FLAT HAMMERER. PATIENT AWAKE AND SCREAMING CONFUSED WHERE HE IS AT EPISODES TO GET OUT OF BED WITHOUT ASSISTANCE. MANY REORIENTATION ATTEMPTS AFTER 5 O'CLOCK. SIDE RAILS UPX4, CALL LIGHT IN REACH, PATIENT DISTRESS DUE TO CONFUSION, NO S/S OF INFECTION. F/U WITH MD FUNG THAT PATIENT WILL NOT BE DISCHARGED WITH CONTINOUS FEEDING 40ML/HR FIBERSOURCE.
[2017-04-07 20:00] VITALS: BP 125/57
[2017-04-07] MEDS: OLANZAPINE 5 MG TABLET GT SCH (20:32)
[2017-04-07] MEDS: HYDROCODONE/APAP 5/325MG 1 EACH TABLET GT PRN (20:32)
[2017-04-07] MEDS: TRAZODONE 50 MG TABLET GT SCH (21:18)
[2017-04-07] MEDS: DONEPEZIL 5 MG TABLET GT SCH (21:21)
[2017-04-08] MEDS: FIBERSOURCE HN 1,000 ML BOTTLE GT PRN ×2 (04:35→21:30)
--- NOTE | 2017-04-08 07:48 | NUR ---
RN NOTES RECEIVED PT IN BED, AWAKE, CONFUSED, WITH PERIODS OF CONFUSION AND AGITATION. BILATERAL SOFT WRIST RESTRAIN FOR SAFETY D/T PULLING OUT IV LINES AND NON COOPERATIVE WITH TREATMENT. EPISODES OF YELLING, KICKING AND SHOUTING ,GT IS INTACT AND PATENT , GTF ONGOING, WITH NO RESIDUALS NOTED. IV TO DIAMOND INTACT AND PATENT.SAFETY MEASURES RENDERED, BED ON LOWEST LEVEL. CALL LIGHT WITHIN REACH. WILL CONTINUE TO MONITOR.
[2017-04-08] MEDS: FLUCONAZOLE (100 MG) 100 MG TABLET PO SCH (08:17)
[2017-04-08] MEDS: DOCUSATE SODIUM LIQ 100 MG/10 ML UDC GT SCH ×2 (08:17→16:48)
[2017-04-08] MEDS: OLANZAPINE 2.5 MG TABLET GT SCH ×2 (08:17→16:49)
[2017-04-08] MEDS: VALPROIC ACID 250 MG/5 ML UDC GT SCH ×3 (08:17→16:48)
[2017-04-08] MEDS: MUPIROCIN OINT 2% 22 GM TUBE SCH ×2 (08:18→21:27)
[2017-04-08 11:14] VITALS: BP 118/41
--- NOTE | 2017-04-08 11:21 | NUR ---
MS/RN NOTES PATIENT SLEEPING, AROUSES TO TACTILE STIMULI, APPEARS PALE AND LETHARGIC. SEEN BY DR. LOCKHART, PLAN OF CARE COORDINATED. PLAN IS TO DISCHARGE PATIENT BACK TO THE FACILITY TODAY IF BEHAVIOR MANAGED.
[2017-04-08] MEDS: LORAZEPAM INJ 2 MG/ML VIAL IV PRN (14:44)
--- NOTE | 2017-04-08 14:50 | NUR ---
MS/RN NOTES PATIENT STARTED BECOMING AGITATED, RESTLESS, CONSTANTLY MOVING, KICKING AND SHOUTING. ATIVAN 0.5MG VIA IV PUSH GIVEN ORDERED, ZYPREXA GIVEN SCHEDULED. PATIENT MANAGED WITH ZYPREXA AND ATIVAN NECESSARY.
--- NOTE | 2017-04-08 17:20 | NUR ---
MS/RN NUTRITION NOTES SPOKE TO DR. FUNG REGARDING PATIENT FEEDING STATUS. NOTIFIED MD THAT HOSPITAL FEEDINGS ALL VIA IV PUMP ONLY ORDERS RECIEVED TO DISCONTINUE BOLUS WITH MEALS. PATIENT AT RISK FOR ASPIRATION, UNABLE TO CONSUME THE DEMAND NEED. WILL CONTINUE WITH FIBERSOURCE AT 40CC/HR.
--- NOTE | 2017-04-08 19:00 | NUR ---
RN NOTES A/O X 1 WITH PERIODS OF CONFUSION, AWAKE IN BED, PT IN STABLE CONDITION, NO S/S OF DISTRESS. SAFETY MEASURES ARE IN PLACE, CALL LIGHT IS IN REACH. WILL CONTINUE TO MONITOR.
--- NOTE | 2017-04-08 19:08 | NUR ---
MS/RN NOTES PATIENT RESTING IN BED, SLEEPING AT THIS TIME, NO S/S OF DISTRESS NOTED, ALL DUE MEDICATIONS GIVEN, ALL NEEDS MET AND ATTENDED. SAFETY MEASURES RENDERED, BILATERAL RESTRAINS INTACT, REMOVED FOR CIRCULATION AND RENEWED. GTUBE FIBERSOURCE FEEING ONGOING AT 40CC/HR. PATIENT KEPT CLEAN AND COMFORTABLE. NO SIGNIFICANT CHANGES OF CONDITON NOTED OR REPORTED. WILL ENDORSE CARE TO RECYCLING CREW SUPERVISOR FOR ALEXEI
[2017-04-08 20:00] VITALS: BP 120/71
[2017-04-08] MEDS: TRAZODONE 50 MG TABLET GT SCH (21:27)
[2017-04-08] MEDS: OLANZAPINE 5 MG TABLET GT SCH (21:27)
[2017-04-08] MEDS: DONEPEZIL 5 MG TABLET GT SCH (21:28)
[2017-04-09 04:00] VITALS: BP 112/62
[2017-04-09] MEDS: OLANZAPINE 2.5 MG TABLET GT SCH ×3 (06:05→15:24)
--- NOTE | 2017-04-09 06:30 | NUR ---
MS RN CLOSING NOTES PT COMFORTABLY ASLEEP AND EASILY AWAKEN, TOLERATING ROOM AIR 02 SAT 99% IN STABLE CONDITION. RESPIRATION EVEN AND UNLABORED. KEPT CLEAN AND DRY AND COMFORTABLE, ALL NURSING CARE RENDERED. NEEDS ATTENDED AND ANTICIPATED, FREQUENT VISUAL CHECK DONE FOR SAFETY EVERY 2 HOURS. HEEL AND ELBOWS OFFLOAD AT ALL TIMES. ASSIST REPOSITION Q2H. TX ORDERED, GOOD SKIN CARE PROVIDED. ON LOW BED AT ALL TIMES TO ENSURE SAFETY. SAFE HAZARD FREE ENVIRONMENT PROVIDED. CALL LIGHT WITHIN EASY TO REACH. WILL ENDORSE NEXT SHIFT CONTINUITY OF CARE.
[2017-04-09 06:39] LABS: BASOPHILS % (AUTO) 0.6 % (0.0-2.0); EOSINOPHILS # (AUTO) 0.2 /CMM (0.0-0.7); EOSINOPHILS % (AUTO) 2.3 % (0.0-6.0); HEMATOCRIT 32 % (39-51); HEMOGLOBIN 10.7 g/dL (13.5-17.5); LYMPHOCYTES # (AUTO) 1.4 /CMM (0.8-4.8); LYMPHOCYTES % (AUTO) 19.3 % (20.0-44.0); MEAN CORPUSCULAR HEMOGLOBIN 29 PG (26.0-33.0); MEAN CORPUSCULAR HGB CONC 33 g/dl (31.0-36.0); MEAN CORPUSCULAR VOLUME 87 fL (80-96); MONOCYTES # (AUTO) 0.8 /CMM (0.1-1.30); MONOCYTES % (AUTO) 11.2 % (2.0-12.0); NEUTROPHILS # (AUTO) 4.8 /CMM (1.8-8.9); NEUTROPHILS % (AUTO) 66.6 % (43.0-81.0); PLATELET COUNT (AUTO) 282 /CMM (150-450); RED BLOOD CELL COUNT(AUTO) 3.71 MIL/uL (4.5-6.0); WHITE BLOOD COUNT (AUTO) 7.3 K/uL (4.3-11.0)
[2017-04-09 07:05] LABS: CALCIUM, SERUM 9.2 mg/dL (8.5-10.1); CARBON DIOXIDE 30 mmol/L (21-32); CHLORIDE 106 mmol/L (98-107); CREATININE 0.9 mg/dL (0.6-1.3); GLUCOSE 101 mg/dL (74-106); MAGNESIUM 2.3 mg/dL (1.8-2.4); PHOSPHORUS 3.2 mg/dL (2.5-4.9); POTASSIUM 3.9 mmol/L (3.5-5.1); SODIUM SERUM 143 mmol/L (136-145); UREA NITROGEN, BLOOD 32 mg/dL (7-18)
--- NOTE | 2017-04-09 07:15 | NUR ---
RN OPENING NOTES RECEIVED PT. IN BED A&OX1. BREATHING UNLABORED, AND EVENLY ON ROOM AIR. NO S/S OF ACUTE DISTRESS. IV FLUIDS AT BEDSIDE. FIBERSOURCE RUNNING AT 40 ML/HR VIA G TUBE. BED IS IN LOWEST AND LOCKED POSITION. 2 SIDE RAILS UP, AND CALL LIGHT WITHIN REACH. ALL NEEDS MET. WILL CONTINUE TO ASSESS AND MONITOR.
[2017-04-09] MEDS ORDERED: FIBERSOURCE HN 1,000 ML BOTTLE GT PRN (07:56)
[2017-04-09 08:00] VITALS: BP 100/44
[2017-04-09] MEDS: VALPROIC ACID 250 MG/5 ML UDC GT SCH ×3 (08:46→16:29)
[2017-04-09] MEDS: FLUCONAZOLE (100 MG) 100 MG TABLET PO SCH (08:46)
[2017-04-09] MEDS: MUPIROCIN OINT 2% 22 GM TUBE SCH ×2 (08:46→20:33)
[2017-04-09] MEDS: DOCUSATE SODIUM LIQ 100 MG/10 ML UDC GT SCH ×2 (08:46→16:29)
[2017-04-09 10:00] VITALS: BP 100/44
[2017-04-09] MEDS: FIBERSOURCE HN 1,000 ML BOTTLE GT PRN (13:21)
[2017-04-09] MEDS: LORAZEPAM INJ 2 MG/ML VIAL IV PRN ×2 (13:34→21:28)
[2017-04-09] MEDS: HYDROCODONE/APAP 5/325MG 1 EACH TABLET GT PRN (15:25)
[2017-04-09 16:00] VITALS: BP 100/50
--- NOTE | 2017-04-09 18:46 | NUR ---
RN CLOSING NOTES PT. IN BED A&OX1. BREATHING UNLABORED, AND EVENLY ON ROOM AIR. NO S/S OF ACUTE DISTRESS. IV ON RIGHT UPPER ARM IS INTACT AND PATENT. FIBERSOURCE RUNNING AT 60 ML/HR VIA G TUBE. PT. TOLERATED PO PUREE DIET INTAKE WELL. SOFT RESTRAINTS ARE ON BILATERAL WRISTS. PT. WAS TURNED AND REPOSITIONED EVERY 2 HOURS. BED IS IN LOWEST AND LOCKED POSITION. 2 SIDE RAILS UP, AND CALL LIGHT WITHIN REACH. ALL NEEDS MET. WILL ENDORSE REPORT TO NURSE.
[2017-04-09 20:00] VITALS: BP 114/65
--- NOTE | 2017-04-09 20:00 | NUR ---
recieved patient is asleep arouses and opens eyes when name spoken and shoulder touched. with him talking noted confusion. moving his legs in attempt to scoot out of the foot of the bed. Released the wrist restraint and watched to see how he would do he started to pull at his gown as if to remove, for the safety of the GT wrists restraints reapplied. explained to him whyu and reassured him that I would remove them when i come in to the room, I don't think he was able to comprehend
[2017-04-09] MEDS: OLANZAPINE 5 MG TABLET GT SCH (20:29)
[2017-04-09] MEDS: TRAZODONE 50 MG TABLET GT SCH (21:52)
[2017-04-09] MEDS: DONEPEZIL 5 MG TABLET GT SCH (21:52)
[2017-04-10 04:00] VITALS: BP 129/97
[2017-04-10] MEDS: FIBERSOURCE HN 1,000 ML BOTTLE GT PRN ×2 (05:25→21:00)
--- NOTE | 2017-04-10 05:34 | NUR ---
ending notes: was of and on awake. When awake he was restless scoot to the bottom of the bed. wrist restraint off during the night when nurse in the room. When wrist restraints off he pulls onhis gown ,placing the GT on danger of being removed accidently. When his name is spoken he will look at me, he smiles, not able to follow commands. Aspiration precautions gave him nector thick liquid 15 ml at a time and he tolerated the juice, hob elevated
[2017-04-10] MEDS: LORAZEPAM INJ 2 MG/ML VIAL IV PRN ×2 (06:07→17:43)
[2017-04-10] MEDS: OLANZAPINE 2.5 MG TABLET GT SCH ×3 (06:34→16:17)
[2017-04-10 08:00] VITALS: BP 150/46
[2017-04-10 09:00] VITALS: BP 150/46
[2017-04-10] MEDS: FLUCONAZOLE (100 MG) 100 MG TABLET PO SCH (09:30)
[2017-04-10] MEDS: DOCUSATE SODIUM LIQ 100 MG/10 ML UDC GT SCH ×2 (09:30→16:17)
[2017-04-10] MEDS: VALPROIC ACID 250 MG/5 ML UDC GT SCH ×3 (09:30→16:17)
[2017-04-10] MEDS: MUPIROCIN OINT 2% 22 GM TUBE SCH ×2 (09:48→21:22)
--- NOTE | 2017-04-10 12:10 | NUR ---
SCHEDULED MEDICATION OLANZAPINE 1.5 MG AT 1100 SCHEDULED DOSE GIVEN BEFORE ACKNOWLEDGMENT OF NEW ORDER OLANZAPINE 2.5MG. NEW DOSE NOT GIVEN DUE TO DOUBLE DOSE.
--- NOTE | 2017-04-10 14:13 | NUR ---
MS MENTAL OBSERVATION NOTE, FOUNT PATIENT DIGGING INTO HIS DIAPER WITH SOILED FECES. PATIENT EXPERIENCE EPISODE OF EXTREME CONFUSION TO WHERE HE IS AT, SCREAMED FOR "HELP". ATTEMPTED FEEDING AND PATIENT BEHAVED VIOLENT SWINGING HIS FIST WITH MEDICAL LAB SPECIALIST AND MYSELF. REORIENTED HIM TO WHERE HE IS AT. PATIENT NOW CALM. WILL CONTINUE TO MONITOR.
[2017-04-10 16:00] VITALS: BP 101/59
[2017-04-10 17:00] VITALS: BP 101/59
--- NOTE | 2017-04-10 18:44 | NUR ---
CLOSING NOTES, PATIENT AOX1. BED LOWEST POSITION, SIDE RAILS UPX4, SOFT RESTRAINTS BI-LATERAL WRIST. ATIVAN GIVEN AT 1800 DUE TO EXTREME FEARFUL ANXIETY. PATIENT WAS SCREAMING AND YELLING FOR HELP SAYING, "THEIR IS PEOPLE AT THE WINDOW TRYING TO GET ME, GOING TO KILL ME". FIBERSOURCE RUNNING AT 60ML/HR, INFUSING WELL NO RESIDUALS. NO S/S SYMPTOMS OF DISTRESS, ALL NEEDS ATTENDED. WILL CONTINUE TO MONITOR AND ENDORSE PATIENT TO LIQUOR CLERK.
[2017-04-10] MEDS: DONEPEZIL 5 MG TABLET GT SCH (21:21)
[2017-04-10] MEDS: TRAZODONE 50 MG TABLET GT SCH (21:22)
[2017-04-10] MEDS: OLANZAPINE 5 MG TABLET GT SCH (21:22)
[2017-04-11 01:13] VITALS: BP 114/78
--- NOTE | 2017-04-11 06:00 | NUR ---
pt alert,confused easily agitated.kept on bilateral wrist restraint, noted pt attempted to get out of bed and pulling lines.pt doesn't follow instruction and yells right away. kept clean and dry, had x2 bm.tolerating gt feeding fibersource at 60cc, no residual. vss,afebrile. will continue to monitor.
[2017-04-11 06:25] VITALS: BP 115/66
[2017-04-11] MEDS: OLANZAPINE 2.5 MG TABLET GT SCH ×3 (07:14→15:02)
--- NOTE | 2017-04-11 07:30 | NUR ---
RN OPEN NOTES RECEIVED REPORT FROM PAPER CUP MACHINE OPERATOR NURSE. PATIENT IS IN BED WITH HIS EYES CLOSED. EASILY AROUSED TO LIGHT TOUCH. NO SIGNS AND SYMPTOMS OF DISTRESS. BREATHING IS BILATERALLY EQUAL AND EVEN. PATIENT IS ON BILABIALLY WRIST SOFT RESTRAINT. GT TUBE FEEDING ON 60ML/HR. BED IN LOW POSITION, LOCKED AND TWO SIDE RAILS ARE UP. CALL LIGHT WITHIN REACH FOR SAFETY. WILL CONTINUE TO MONITOR AND ASSESS PATIENT THROUGHOUT MY SHIFT
[2017-04-11 08:00] VITALS: BP 112/63
[2017-04-11] MEDS: DOCUSATE SODIUM LIQ 100 MG/10 ML UDC GT SCH ×2 (08:43→16:14)
[2017-04-11] MEDS: VALPROIC ACID 250 MG/5 ML UDC GT SCH ×3 (08:43→16:14)
[2017-04-11] MEDS: FLUCONAZOLE (100 MG) 100 MG TABLET PO SCH (08:43)
[2017-04-11] MEDS: MUPIROCIN OINT 2% 22 GM TUBE SCH ×2 (08:44→20:24)
[2017-04-11 09:00] VITALS: BP 112/63
[2017-04-11] MEDS ORDERED: PERMETHRIN 5% CRM 60 GM TUBE TP ONE (09:30)
[2017-04-11] MEDS ORDERED: IVERMECTIN 3 MG TABLET PO ONE (11:00)
[2017-04-11] MEDS: FIBERSOURCE HN 1,000 ML BOTTLE GT PRN (11:58)
[2017-04-11 16:00] VITALS: BP 109/67
[2017-04-11] MEDS: LORAZEPAM INJ 2 MG/ML VIAL IV PRN (17:17)
--- NOTE | 2017-04-11 18:27 | NUR ---
RN CLOSING NOTES PATIENT IS IN BED. AWAKE AND CONFUSED. UNABLE TO VERBALIZE UNDERSTANDING. NO SIGNS AND SYMPTOMS OF DISTRESS. BREATHING IS BILATERALLY ROSLYN AND UNLABORED. ON SOFT RESTRAINS. PATIENT IS TRYING TO PULL HIS GASTRIC TUBE AND GET OUT OF BED. ISOLATION FOR MRSA NARES. ALL NURSING CARE ANTICIPATED AND ATTENDED FOR. PATIENT REMAINED SAFE, DRY AND CLEAN. BED IN LOW POSITION, LOCKED AND FOUR SIDE RAILS ARE UP FOR SAFETY. WILL ENDORSE TO MMA FIGHTER NURSE.
[2017-04-11 20:00] VITALS: BP 117/63
[2017-04-11] MEDS: OLANZAPINE 5 MG TABLET GT SCH (20:24)
[2017-04-11] MEDS: DONEPEZIL 5 MG TABLET GT SCH (21:05)
[2017-04-11] MEDS: TRAZODONE 50 MG TABLET GT SCH (21:05)
[2017-04-12] MEDS: LORAZEPAM INJ 2 MG/ML VIAL IV PRN (00:25)
[2017-04-12] MEDS: FIBERSOURCE HN 1,000 ML BOTTLE GT PRN (02:35)
[2017-04-12 04:00] VITALS: BP 133/74
[2017-04-12] MEDS: OLANZAPINE 2.5 MG TABLET GT SCH ×3 (06:07→16:06)
--- NOTE | 2017-04-12 06:33 | NUR ---
pt not sleeping overnight, attempting to get out of bed to go home, psychosis and yelling out that somebody is trying to kill him,pt is schizo. pt yells out at times and hitting to nurse when given meds by gt. tolerating feeding, no residual.smear bm, incontinent of urine on diaper pads.had bedbath to washed off cream for scabies.kept on wrist restraint overnight.pt restless. will continue to monitor, isolation mrsa precaution observed.
--- NOTE | 2017-04-12 07:30 | NUR ---
MS RN NOTES RECEIVED PATIENT IN BED ASLEEP, AROUSES TO NAME AND TOUCH, AO X 1, PATIENT WITH TRACHEA STOMA, CDI DRESSING, HOB ELEVATES, NO SIGNS OF PAIN, DIAMOND HL IN PLACE G 20 FLUSHES WELL, SITE CLEAR, PATIENT ON G-TUBE FEEDING ON FIBERSOURCE 60ML/HR INTACT, RESIDUAL 0ML, PLACEMENT CHECKED, ON ACUTE MEDICAL RESTRAINT, CHECKED FOR CIRCULATION, WILL RELEASE Q 2HOURS. NEEDS ATTENDED ANTICIPATED, ALSO ON PUREED DIET THICK LIQUID. WILL ASSIST TURN AND REPOSITION Q 2 HR, CALL LIGHT WITHIN TO REACH. WILL CONTINUE TO MONITOR.
[2017-04-12 09:00] VITALS: BP 142/67
[2017-04-12] MEDS: VALPROIC ACID 250 MG/5 ML UDC GT SCH ×3 (09:15→16:06)
[2017-04-12] MEDS: FLUCONAZOLE (100 MG) 100 MG TABLET PO SCH (09:15)
[2017-04-12] MEDS: DOCUSATE SODIUM LIQ 100 MG/10 ML UDC GT SCH ×2 (09:15→16:06)
[2017-04-12] MEDS: MUPIROCIN OINT 2% 22 GM TUBE SCH ×2 (09:28→21:11)
--- NOTE | 2017-04-12 09:30 | NUR ---
MS RN NOTES DUE MEDS GIVEN. SEEN BY DR. CROSS EARLIER. FOR [facility].
[2017-04-12 17:00] VITALS: BP 119/60
--- NOTE | 2017-04-12 18:55 | NUR ---
MS RN CLOSING NOTES PATIENT RESTING COMFORTABLY IN BED, ASLEEP, AROUSES TO NAME AND TOUCH, AO X 1, PATIENT WITH TRACHEA STOMA, CDI DRESSING, HOB ELEVATES, NO SIGNS OF PAIN, DIAMOND HL IN PLACE G 20 FLUSHES WELL, SITE CLEAR, PATIENT ON G-TUBE FEEDING ON FIBERSOURCE 60ML/HR INTACT, RESIDUAL 0ML, ON ACUTE MEDICAL RESTRAINT, CHECKED [id number] FOR CIRCULATION, RELEASED Q 2HOURS. NEEDS ATTENDED AND MET, PM CARE DONE, ALSO ON PUREED DIET THICK LIQUID. TURNED AND REPOSITIONED Q 2 HR, CALL LIGHT WITHIN TO REACH. NO OTHER SIGNIFICANT CHANGE IN CONDITION. STILL FOR DC AND PLACEMENT C/O CASE MANAGEMENT, JEFF BUCCARO AWARE, WILL ENDORSE TO NEXT SHIFT FOR ALEXEI.
--- NOTE | 2017-04-12 19:30 | NUR ---
RN/MS NOTES: RECEIVED PATIENT IN BED ASLEEP W/ RESPIRATIONS EVEN AND UNLABORED. NO S/S OF RESPIRATORY DISTRESS NOTED. RA SAT 95%. AROSABLE TO NAME AND TOUCH. PATIENT WITH TRACHEA STOMA CDI. HOB ELEVATES. NO SIGNS OF PAIN OR ANY DISTRESS. DIAMOND HL IN PLACE G 20 FLUSHES WELL, SITE CLEAR, PATIENT ON G-TUBE FEEDING OF FIBERSOURCE 60ML/HR TOLERATING WELL W/ NO RESIDUAL NOTED. PLACEMENT CHECKED. ON ACUTE MEDICAL RESTRAINT, CHECKED FOR CIRCULATION, WILL RELEASE Q 2HOURS. NEEDS ATTENDED ANTICIPATED, ALSO ON PUREED DIET THICK LIQUID. WILL ASSIST TURN AND REPOSITION Q 2 HR, CALL LIGHT WITHIN TO REACH. WILL CONTINUE TO MONITOR.
[2017-04-12] MEDS: DONEPEZIL 5 MG TABLET GT SCH (21:11)
[2017-04-12] MEDS: TRAZODONE 50 MG TABLET GT SCH (21:11)
[2017-04-12] MEDS: OLANZAPINE 5 MG TABLET GT SCH (21:11)
[2017-04-13 04:00] VITALS: BP 125/57
[2017-04-13] MEDS: FIBERSOURCE HN 1,000 ML BOTTLE GT PRN ×2 (05:19→23:22)
[2017-04-13] MEDS: OLANZAPINE 2.5 MG TABLET GT SCH ×3 (07:00→16:07)
--- NOTE | 2017-04-13 07:36 | NUR ---
RN/MS NOTES: PT. IN BED NOT IN ANY DISTRESS. REPORT GIVEN TO NEXT SHIFT NURSE FOR ALEXEI.
[2017-04-13 08:00] VITALS: BP 134/59
[2017-04-13 09:00] VITALS: BP 134/59
[2017-04-13] MEDS: FLUCONAZOLE (100 MG) 100 MG TABLET PO SCH (09:09)
[2017-04-13] MEDS: DOCUSATE SODIUM LIQ 100 MG/10 ML UDC GT SCH ×2 (09:10→16:08)
[2017-04-13] MEDS: HYDROCODONE/APAP 5/325MG 1 EACH TABLET GT PRN (09:10)
[2017-04-13] MEDS: VALPROIC ACID 250 MG/5 ML UDC GT SCH ×3 (09:10→16:08)
[2017-04-13] MEDS: MUPIROCIN OINT 2% 22 GM TUBE SCH ×2 (09:24→21:54)
--- NOTE | 2017-04-13 09:30 | NUR ---
MS RN NOTES DUE MEDS GIVEN. SEEN BY DR. CROSS EARLIER. [facility] OR OTHERWISE PER CASE MANAGEMENT FOR PLACEMENT.
[2017-04-13 16:00] VITALS: BP 125/59
[2017-04-13 17:00] VITALS: BP 125/59
--- NOTE | 2017-04-13 19:16 | NUR ---
MS RN CLOSING NOTES PATIENT RESTING COMFORTABLY IN BED, ASLEEP, AROUSES TO NAME AND TOUCH, AO X 1, PATIENT WITH TRACHEA STOMA, CDI DRESSING, HOB ELEVATES, NO SIGNS OF PAIN, DIAMOND HL IN PLACE G 20 FLUSHES WELL, SITE CLEAR, PATIENT ON G-TUBE FEEDING ON FIBERSOURCE 60ML/HR INTACT, RESIDUAL 0ML, ON ACUTE MEDICAL RESTRAINT, CHECKED [id number] FOR CIRCULATION, RELEASED Q 2HOURS. NEEDS ATTENDED AND MET, PM CARE DONE, ALSO ON PUREED DIET THICK LIQUID. TURNED AND REPOSITIONED Q 2 HR, CALL LIGHT WITHIN TO REACH. NO OTHER SIGNIFICANT CHANGE IN CONDITION. STILL FOR DC AND PLACEMENT C/O CASE MANAGEMENT, JEFF ASSISTANT PROFESSOR OF SURGERY AWARE, WILL ENDORSE TO NEXT SHIFT FOR ALEXEI.
--- NOTE | 2017-04-13 19:35 | NUR ---
MS RN OPENING NOTES RECEIVED PATIENT IN BED AWAKE, A & O X 1, PATIENT WITH TRACHEA STOMA, CDI DRESSING, HOB ELEVATED, NO SIGNS OF PAIN, DIAMOND HL IN PLACE G 20 FLUSHES WELL, SITE CLEAR, PATIENT ON G-TUBE FEEDING ON FIBERSOURCE 60ML/HR INTACT, RESIDUAL 1 ML, PLACEMENT CHECKED, ON ACUTE MEDICAL RESTRAINT, CHECKED FOR CIRCULATION, WILL RELEASE Q 2HOURS. ALSO ON PUREED DIET THICK LIQUID. WILL ASSIST TURN AND REPOSITION Q 2 HR, WILL KEEP CLEAN & DRY. BED IN LOW LOCKED POSITION. CALL LIGHT WITHIN TO REACH. WILL CONTINUE TO MONITOR CLOSELY.
[2017-04-13 20:00] VITALS: BP 137/66
[2017-04-13] MEDS: OLANZAPINE 5 MG TABLET GT SCH (20:11)
[2017-04-13] MEDS: ACETAMINOPHEN 650 MG/20.3 ML UDC GT PRN (20:11)
--- NOTE | 2017-04-13 20:11 | NUR ---
PRN TYLENOL GIVEN PATIENT NOTED WITH BODY TEMP OF 100.6, PRN TYLENOL GIVEN ORDERED. WILL MONITOR FOR EFFECTIVENESS.
[2017-04-13] MEDS: DONEPEZIL 5 MG TABLET GT SCH (22:28)
[2017-04-13] MEDS: TRAZODONE 50 MG TABLET GT SCH (22:29)
--- NOTE | 2017-04-14 01:30 | NUR ---
IV SITE CHANGED ASSESSED THE PATIENT, FLUSHED IV SITE ON DIAMOND, NOTED TO BE INFILTRATED. REMOVED & PRESSURE DRESSING APPLIED. NEW IV CATH INSERTED TO RIGHT HAND WITH GOOD BLOOD FLOW. PROCEDURE TOLERATED WELL. NO S/S OF INFECTION NOTED. WILL CONTINUE TO MONITOR.
[2017-04-14] MEDS: LORAZEPAM INJ 2 MG/ML VIAL IV PRN ×5 (01:46→21:28)
--- NOTE | 2017-04-14 01:46 | NUR ---
PRN ATIVAN GIVEN PATIENT NOTED TO BE VERY RESTLESS/ANXIOUS, ATTEMPTING TO KICK STAFF WITH HIS LEGS, VERBALLY VERY LOUD, SCREAMING. PRN ATIVAN GIVEN ORDERED. WILL MONITOR CLOSELY FOR THE EFFECTIVENESS.
[2017-04-14] MEDS: OLANZAPINE 2.5 MG TABLET GT SCH ×3 (07:02→16:31)
--- NOTE | 2017-04-14 07:03 | NUR ---
MS RN CLOSING NOTES PATIENT SLEPT INTERMITTENTLY @ NIGHT, A & O X 1, CONFUSED. PATIENT WITH TRACHEA STOMA, CDI DRESSING, IV ACCESS TO RIGHT HAND, SL, INTACT PATENT. PATIENT ON G-TUBE FEEDING ON FIBERSOURCE 60ML/HR INTACT, RESIDUAL 1 ML, PLACEMENT CHECKED, HOB ELEVATED. ASPIRATION PRECAUTIONS OBSERVED. NOTED WITH AGGRESSIVE BEHAVIOR/ANXIOUSNESS, PRN MED GIVEN. ON ACUTE MEDICAL RESTRAINT, CHECKED FOR CIRCULATION, FOLLOWED RESTRAINT PROTOCOL. ALSO ON PUREED DIET THICK LIQUID. ASSISTED WITH TURN AND REPOSITIONING Q 2 HR, KEPT CLEAN & DRY. ALL NEEDS ATTENDED TO & MET. BED IN LOW LOCKED POSITION. CALL LIGHT WITHIN TO REACH. WILL ENDORSE TO AM RN FOR CONTINUITY OF CARE.
--- NOTE | 2017-04-14 07:15 | NUR ---
RN NOTES PT IS LAYING DOWN IN BED, CONFUSED. PT HAS SOFT WRIST RESTRAINTS ON. PT ON RA, RESPIRATIONS ARE EVEN AND UNLABORED. IV ON L HAND INTACT AND SL. G-TUBE IS IN TACT AND RUNNING FIBERSOURCE @ 60ML/HR. SAFETY MEASURES ARE IN PLACE, CALL LIGHT IS IN REACH. WILL CONTINUE TO MONITOR.
[2017-04-14 09:00] VITALS: BP 109/60
[2017-04-14] MEDS: FLUCONAZOLE (100 MG) 100 MG TABLET PO SCH (09:00)
[2017-04-14] MEDS: DOCUSATE SODIUM LIQ 100 MG/10 ML UDC GT SCH ×2 (09:00→16:31)
[2017-04-14] MEDS: MUPIROCIN OINT 2% 22 GM TUBE SCH ×2 (09:00→20:12)
[2017-04-14] MEDS: VALPROIC ACID 250 MG/5 ML UDC GT SCH ×3 (09:00→16:31)
[2017-04-14 17:00] VITALS: BP 105/56
--- NOTE | 2017-04-14 18:35 | NUR ---
RN NOTES PT IS LAYING DOWN IN BED, RESTING COMFORTABLY. PT ON RA, RESPIRATIONS ARE EVEN AND UNLABORED. IV ON R HAND INTACT AND SL. G-TUBE IS IN PLACE AND RUNNING FIBERSOURCE AT 60ML/HR. SOFT WRIST RESTRAINTS ARE ON, SKIN IS INTACT, NO IRRITATION NOTED. ATIVAN GIVEN @ 1700 FOR AGITATION, PT IS DOZING INTERMITTENTLY. ALL MEDS WERE GIVEN ORDERED AND PT NEEDS MET. SAFETY MEASURES ARE IN PLACE, CALL LIGHT IS IN REACH. WILL ENDORSE TO FILM EDITOR SUPERVISOR RN FOR CONTINUITY OF CARE.
--- NOTE | 2017-04-14 19:35 | NUR ---
MS RN INITIAL NOTES PT IS IN BED RESTING, CONFUSED. NO SIGNS OF SOB OR DISTRESS, BREATHING EVENLY AND UNLABORED ON RA. BILATERAL SOFT WRIST RESTRAINTS IN PLACE. G-TUBE FEEDING INTACT WITH FIBERSOURCE RUNNING AT 60 ML/HR, TOLERATING WELL. IV ACCESS IS INTACT AND PATENT.BED IS IN LOW AND LOCKED POSITION, SEIZURE PRECAUTIONS IN PLACE. WILL CONTINUE TO MONITOR PT
[2017-04-14 20:00] VITALS: BP 117/68
[2017-04-14] MEDS: FIBERSOURCE HN 1,000 ML BOTTLE GT PRN (20:09)
[2017-04-14] MEDS: TRAZODONE 50 MG TABLET GT SCH (21:23)
[2017-04-14] MEDS: DONEPEZIL 5 MG TABLET GT SCH (21:23)
[2017-04-14] MEDS: OLANZAPINE 5 MG TABLET GT SCH (21:23)
[2017-04-15 04:35] VITALS: BP 108/69
[2017-04-15] MEDS: OLANZAPINE 2.5 MG TABLET GT SCH ×3 (06:05→15:40)
--- NOTE | 2017-04-15 06:33 | NUR ---
MS RN CLOSING NOTES PT IS IN BED RESTING. NO SIGNS OF SOB OR DISTRESS, BREATHING EVENLY AND UNLABORED ON RA. IV ACCESS IS INTACT AND SL. G-TUBE IS INTACT WITH FIBERSOURCE RUNNING AT 60 ML/HR, TOLERATING WELL. BILATERAL SOFT RESTRAINTS ON. ALL NEEDS WERE ANTICIPATED AND MET. BED IS IN LOW AND LOCKED POSITION, CALL LIGHT WITHIN REACH. WILL ENDORSE TO DAYSHIFT
--- NOTE | 2017-04-15 07:15 | NUR ---
ms rn initial notes Received patient in bed, asleep, head of bed elevated, no SOB or distress noted, on GT fibersource @ 60ml/hr infusing well, no residual noted. No facial grimace noted and comfortable. Right hand IV site intact and patent. Kept patient clean and comfortable in bed, call light with in patient reach, will continue to monitor accordingly.
[2017-04-15 08:00] VITALS: BP 138/64
[2017-04-15] MEDS: FLUCONAZOLE (100 MG) 100 MG TABLET PO SCH (08:31)
[2017-04-15] MEDS: DOCUSATE SODIUM LIQ 100 MG/10 ML UDC GT SCH ×2 (08:31→16:08)
[2017-04-15] MEDS: LORAZEPAM INJ 2 MG/ML VIAL IV PRN ×3 (08:32→22:19)
[2017-04-15] MEDS: VALPROIC ACID 250 MG/5 ML UDC GT SCH ×3 (08:32→16:09)
[2017-04-15] MEDS: MUPIROCIN OINT 2% 22 GM TUBE SCH ×2 (08:33→21:16)
[2017-04-15] MEDS: FIBERSOURCE HN 1,000 ML BOTTLE GT PRN (15:40)
[2017-04-15 16:00] VITALS: BP 110/44
--- NOTE | 2017-04-15 19:14 | NUR ---
ms rn closing notes All needs provided, attended, and anticipated. Kept patient clean and comfortable in bed, call light with in patient reach, endorsed to next shift RN to continue care.
--- NOTE | 2017-04-15 19:30 | NUR ---
RN MS NOTES, RECEIVED PATIENT IN BED, SLEEPING COMFORTABLY, BREATHING EVEN AND UNLABORED NO S/S OF ACUTE DISTRESS OR SOB, WITH SOFT WRIST RESTRAINS IN PLACED, CIRCULATION WNL, NO ABNORMALITY NOTED AT SITE, BED LOCKED AND IN LOWEST POSITION, CALL LIGHT W/I REACH, WILL CONTINUE TO MONITOR CLOSELY.
[2017-04-15 20:00] VITALS: BP 108/55
[2017-04-15 21:00] VITALS: BP 108/55
[2017-04-15] MEDS: OLANZAPINE 5 MG TABLET GT SCH (21:15)
[2017-04-15] MEDS: TRAZODONE 50 MG TABLET GT SCH (21:17)
[2017-04-15] MEDS: DONEPEZIL 5 MG TABLET GT SCH (22:12)
[2017-04-16 04:00] VITALS: BP 105/57
[2017-04-16] MEDS: FIBERSOURCE HN 1,000 ML BOTTLE GT PRN (04:49)
[2017-04-16] MEDS: LORAZEPAM INJ 2 MG/ML VIAL IV PRN (04:50)
[2017-04-16 05:00] VITALS: BP 105/57
--- NOTE | 2017-04-16 07:30 | NUR ---
RN NOTE: RECEIVED PATIENT IN BED, ASLEEP BREATHING NORMAL, EVEN AND UNLABORED. NO SOB NOTED. NOT ANY FORM OF DISTRESS. ON ROOM AIR, SATURATING WELL. CONTINUE ON GT FEEDING FIBERSOURCE @60CC/HR TOLERATING WELL. NO RESIDUAL NOTED. POSITIVE PLACEMENT. HOB ELEVATED. ASPIRATION PRECAUTION TAKEN. CONTINUE ON (B) SOFT WRIST RESTRAINTS. CIRCULATION WITHIN NORMAL LIMIT. KEPT CLEAN, DRY AND COMFORTABLE. HANDLE GENTLY. SAFETY MEASURES OBSERVED. CALL LIGHT WITHIN REACH. WILL CONTINUE TO MONITOR.
[2017-04-16] MEDS: OLANZAPINE 2.5 MG TABLET GT SCH ×3 (07:57→16:43)
[2017-04-16 08:00] VITALS: BP 135/65
[2017-04-16] MEDS: FLUCONAZOLE (100 MG) 100 MG TABLET PO SCH (09:12)
[2017-04-16] MEDS: MUPIROCIN OINT 2% 22 GM TUBE SCH ×2 (09:12→21:56)
[2017-04-16] MEDS: DOCUSATE SODIUM LIQ 100 MG/10 ML UDC GT SCH ×2 (09:12→16:43)
[2017-04-16] MEDS: VALPROIC ACID 250 MG/5 ML UDC GT SCH ×3 (09:13→16:43)
[2017-04-16 16:00] VITALS: BP 125/60
[2017-04-16 18:00] VITALS: BP 113/90
--- NOTE | 2017-04-16 19:02 | NUR ---
RN NOTES PATIENT ENDORSED TO NEXT SHIFT IN STABLE CONDITION FOR CONTINUITY OF CARE. NO SIGNIFICANT CHANGES NOTED. KEPT CLEAN, DRY AND COMFORTABLE. ALL NEEDS ATTENDED. SAFETY MEASURE OBSERVED. CALL LIGHT WITH IN REACH. WILL CONT TO MONITOR.
[2017-04-16 20:00] VITALS: BP 147/60
[2017-04-16] MEDS: DONEPEZIL 5 MG TABLET GT SCH (21:56)
[2017-04-16] MEDS: TRAZODONE 50 MG TABLET GT SCH (21:57)
[2017-04-16] MEDS: OLANZAPINE 5 MG TABLET GT SCH (21:58)
[2017-04-17] MEDS: FIBERSOURCE HN 1,000 ML BOTTLE GT PRN (01:10)
[2017-04-17 04:00] VITALS: BP 121/63
[2017-04-17 08:00] VITALS: BP 129/65
--- NOTE | 2017-04-17 08:00 | NUR ---
RN NOTES RECEIVED PATIENT RESTING COMFORTABLY IN BED, ASLEEP, EASILY AROUSABLE DURING CARE, RESPIRATIONS EVEN AND UNLABORED. IN NO APPARENT PAIN OR DISCOMFORT AT THIS TIME. IV ACCESS TO RIGHT HAND PATENT AND INTACT NO REDNESS OR INFILTRATION NOTED. KEPT CLEAN DRY AND COMFORTABLE CALL LIGHT WITHIN EASY REACH, ISOLATION PRECAUTIONS OBSERVED, WILL CONTINUE TO MONITOR
[2017-04-17] MEDS: VALPROIC ACID 250 MG/5 ML UDC GT SCH ×3 (09:13→17:07)
[2017-04-17] MEDS: ACETAMINOPHEN 650 MG/20.3 ML UDC GT PRN (09:13)
[2017-04-17] MEDS: DOCUSATE SODIUM LIQ 100 MG/10 ML UDC GT SCH ×2 (09:13→17:07)
[2017-04-17] MEDS: FLUCONAZOLE (100 MG) 100 MG TABLET PO SCH (09:13)
--- NOTE | 2017-04-17 09:30 | NUR ---
RN NOTES PT WITH TEMPERATURE OF 100.1 AXILLARY, MADE AWARE TYLENOL ADMINISTERED, WILL CONTINUE TO MONITOR
[2017-04-17] MEDS: MUPIROCIN OINT 2% 22 GM TUBE SCH ×2 (09:34→20:57)
[2017-04-17] MEDS: OLANZAPINE 2.5 MG TABLET GT SCH ×3 (09:34→17:07)
[2017-04-17 16:00] VITALS: BP 123/82
--- NOTE | 2017-04-17 16:30 | NUR ---
RN NOTES PT WITH TEMPERATURE OF 100.8 AXILLARY, MADE AWARE TYLENOL ADMINISTERED, COOLING MEASURES PROVIDED, WILL CONTINUE TO MONITOR AND AWAIT ANY FURTHER ORDERS
--- NOTE | 2017-04-17 19:00 | NUR ---
RN CLOSING NOTES PATIENT RESTING COMFORTABLY IN BED, ASLEEP, EASILY AROUSABLE DURING CARE, RESPIRATIONS EVEN AND UNLABORED. IN NO APPARENT PAIN OR DISCOMFORT AT THIS TIME. IV ACCESS TO RIGHT HAND AND LEFT WRIST PATENT AND INTACT NO REDNESS OR INFILTRATION NOTED. KEPT CLEAN DRY AND COMFORTABLE CALL LIGHT WITHIN EASY REACH, ISOLATION PRECAUTIONS OBSERVED, PATIENT PRESENTED WITH FEVER OF 100.8, COOLING MEASURES IN PLACE, TYLENOL PRN GIVEN, MD NOTIFIED. WILL CONTINUE TO MONITOR. ENDORSED TO NEXT SHIFT FOR CONTINUITY OF CARE.
--- NOTE | 2017-04-17 19:30 | NUR ---
MSRN ASLEEP, OCCASSIONALLY AWAKENDED FROOM PRODUCTIVE COUGH. ORAL SUCTIONING AND DEEP NASAL SUCTIONING REQUIRED. GT FEEDINGS OF FIBERSOURCE AT 60CC/HR, TOLERATING WELL. NO RESIDUALS FOR NOW.
[2017-04-17 20:00] VITALS: BP 136/71
[2017-04-17] MEDS: OLANZAPINE 5 MG TABLET GT SCH (20:56)
[2017-04-17 22:00] VITALS: BP 102/55
--- NOTE | 2017-04-17 23:00 | NUR ---
MSRN POSITIONED PER COMFORT. HOB AT 45 DEGREES. SUCTIONED THICK BEIGE COLORED PHLEGM. NO RESIDUALS FROM GT. AFEBRILE.
[2017-04-17] MEDS: TRAZODONE 50 MG TABLET GT SCH (23:01)
[2017-04-17] MEDS: DONEPEZIL 5 MG TABLET GT SCH (23:02)
--- NOTE | 2017-04-18 01:44 | NUR ---
MSRN REMAINS UNCAHNGED, CLOSELY WATCHED.
--- NOTE | 2017-04-18 06:54 | NUR ---
MSRN TRYING TO GET OOB, REPOSITIONED. LOW GRADE TEMP 99.6
--- NOTE | 2017-04-18 07:10 | NUR ---
RN INITIAL NOTE PATIENT RECEIVED IN BED. PT IS AWAKE BUT CONFUSED AND DISORIENTED. NO S/S OF PAIN OR DISCOMFORT. RESPIRATIONS ARE EVEN AND UNLABORED. NO S/S OF RESPIRATORY DISTRESS OR SOB. SATING WELL ON ROOM AIR. GTUBE FLUSHED, PATENT. PLACEMENT VERIFIED. TOLERATING FEEDING WELL. SKIN IS WARM AND DRY TO TOUCH. IV SITE FLUSHED, PATENT. SAFETY PRECAUTIONS IMPLEMENTED: BED IN LOCKED, LOW POSITION WITH TWO SIDE RAILS UP. CALL LIGHT AND BELONGINGS WITHIN EASY REACH. WILL CONTINUE TO MONITOR.
[2017-04-18] MEDS: OLANZAPINE 2.5 MG TABLET GT SCH ×3 (07:28→18:06)
[2017-04-18 08:00] VITALS: BP 143/65
[2017-04-18] MEDS: VALPROIC ACID 250 MG/5 ML UDC GT SCH ×3 (09:39→18:06)
[2017-04-18] MEDS: MUPIROCIN OINT 2% 22 GM TUBE SCH ×2 (09:40→20:44)
[2017-04-18] MEDS: HYDROCODONE/APAP 5/325MG 1 EACH TABLET GT PRN (09:40)
[2017-04-18] MEDS: DOCUSATE SODIUM LIQ 100 MG/10 ML UDC GT SCH ×2 (09:40→18:06)
[2017-04-18] MEDS: FLUCONAZOLE (100 MG) 100 MG TABLET PO SCH (09:40)
[2017-04-18] MEDS: ACETAMINOPHEN 650 MG/20.3 ML UDC GT PRN ×2 (11:06→23:32)
[2017-04-18] MEDS ORDERED: IBUPROFEN SUSP 100 MG/5 ML UDC PO PRN (11:30)
[2017-04-18] MEDS: FIBERSOURCE HN 1,000 ML BOTTLE GT PRN (12:36)
[2017-04-18 13:38] LABS: BASOPHILS % (AUTO) 0.1 % (0.0-2.0); HEMATOCRIT 29 % (39-51); HEMOGLOBIN 9.5 g/dL (13.5-17.5); LYMPHOCYTES # (AUTO) 1.6 /CMM (0.8-4.8); MEAN CORPUSCULAR HEMOGLOBIN 29 PG (26.0-33.0); MEAN CORPUSCULAR HGB CONC 33 g/dl (31.0-36.0); MEAN CORPUSCULAR VOLUME 86 fL (80-96); NEUTROPHILS # (AUTO) 8.8 /CMM (1.8-8.9); NEUTROPHILS % (AUTO) 70.9 % (43.0-81.0); PLATELET COUNT (AUTO) 194 /CMM (150-450); RDW COEFFICIENT OF VARIATION 15.6 (11.5-15.0); RED BLOOD CELL COUNT(AUTO) 3.34 MIL/uL (4.5-6.0); WHITE BLOOD COUNT (AUTO) 12.4 K/uL (4.3-11.0)
[2017-04-18 13:45] LABS: CALCIUM, SERUM 8.6 mg/dL (8.5-10.1); CARBON DIOXIDE 29 mmol/L (21-32); CHLORIDE 106 mmol/L (98-107); CREATININE 1.1 mg/dL (0.6-1.3); GLUCOSE 113 mg/dL (74-106); SODIUM SERUM 142 mmol/L (136-145); UREA NITROGEN, BLOOD 36 mg/dL (7-18)
[2017-04-18 15:00] LABS: LYMPHOCYTES % (MANUAL) 13 % (16-48); MONOCYTES % (MANUAL) 17 % (0-11.0); NEUTROPHILS % (MANUAL) 70 (42-76)
[2017-04-18 16:00] VITALS: BP 99/51
[2017-04-18] MEDS: LORAZEPAM INJ 2 MG/ML VIAL IV PRN (18:53)
[2017-04-18 20:00] VITALS: BP 104/60
[2017-04-18] MEDS: OLANZAPINE 5 MG TABLET GT SCH (20:44)
[2017-04-18] MEDS: TRAZODONE 50 MG TABLET GT SCH (21:43)
[2017-04-18] MEDS: DONEPEZIL 5 MG TABLET GT SCH (21:43)
[2017-04-19 04:00] VITALS: BP 106/53
[2017-04-19] MEDS: OLANZAPINE 2.5 MG TABLET GT SCH ×3 (06:08→16:31)
[2017-04-19] MEDS: FIBERSOURCE HN 1,000 ML BOTTLE GT PRN (06:38)
--- NOTE | 2017-04-19 07:24 | NUR ---
RN NOTES RECEIVED PT FROM NIGHTSHIFT RESTING IN BED. PT IS AROUSABLE BUT CONFUSED. ON ROOM AIR NO SOB OR DISTRESS NOTED. GTF AT 60ML/HR. BILATERAL SOFT WRIST RESTRAINTS APPLIED. PT ATTEMPTS TO REMOVE GTUBE AND IV. BED LOCKED AND IN LOWEST POSITION, CALL LIGHT WITHIN REACH, SIDE RAILS UPX3, WILL CONT TO JOSÉ.
[2017-04-19 08:00] VITALS: BP 115/60
[2017-04-19] MEDS: DOCUSATE SODIUM LIQ 100 MG/10 ML UDC GT SCH ×2 (08:26→16:30)
[2017-04-19] MEDS: MUPIROCIN OINT 2% 22 GM TUBE SCH (08:26)
[2017-04-19] MEDS: VALPROIC ACID 250 MG/5 ML UDC GT SCH ×3 (08:26→16:30)
[2017-04-19] MEDS ORDERED: SULFAMEHOX/TRIMETH 200-40MG/ 5 ML UDC PO SCH (11:00)
[2017-04-19] MEDS: ACETAMINOPHEN 650 MG/20.3 ML UDC GT PRN (12:59)
[2017-04-19 16:00] VITALS: BP_SYST 113; BP_SYST 88; BP_DIAS 48; BP_DIAS 63
--- NOTE | 2017-04-19 18:35 | NUR ---
RN NOTES PT REMAINED IN STABLE CONDITION THROUGHOUT THE SHIFT. PT TO BE DISCHARGED BACK TO [facility]. WOUND PICTURES IN CHART. NO SIGNIFICANT CHANGES NOTED. ALL NEEDS MET. WILL ENDORSE TO ONCOMING SHIFT.
[2017-04-19 20:00] VITALS: BP 111/49
--- NOTE | 2017-04-19 20:05 | NUR ---
MS RN NOTES. GAVE REPORT TO RICHARD CUADRA FROM [facility] REGARDING PATIENT DISCHARGE INFORMATION.
--- NOTE | 2017-04-19 20:15 | NUR ---
MS RN NOTES. GAVE REPORT TO EMT. DISCONNECTED PATIENT'S GTUBE. IV ACCESS ALREADY DC'D BY AM NURSE FOR DISCHARGE. GAVE DISCHARGE INSTRUCTIONS TO EMT. PATIENT WITH NO BELONGINGS. VITAL SIGNS STABLE AND WNL.
== END 2017-04-19 20:15 | DRG 871 ==
LOC: ER 21:10 → MED 04-01 11:36 → MEDSG1 04-03 03:23
PROVIDERS: ADMIT Legal Medicine; ATTEND Legal Medicine
DX: A41.9 Sepsis, unspecified organism (principal); N17.0 Acute kidney failure with tubular necrosis; G92 Toxic encephalopathy; J18.9 Pneumonia, unspecified organism; R13.10 Dysphagia, unspecified; B37.9 Candidiasis, unspecified; N39.0 Urinary tract infection, site not specified; J98.11 Atelectasis; Z93.0 Tracheostomy status; G30.9 Alzheimer's disease, unspecified; F02.80 Dementia in other diseases classified elsewhere, unspecified severity, without behavioral disturbance, psychotic disturbance, mood disturbance, and anxiety; D64.9 Anemia, unspecified; I25.10 Atherosclerotic heart disease of native coronary artery without angina pectoris; I10 Essential (primary) hypertension; F29 Unspecified psychosis not due to a substance or known physiological condition; F20.9 Schizophrenia, unspecified; E03.9 Hypothyroidism, unspecified; Z79.899 Other long term (current) drug therapy; D63.8 Anemia in other chronic diseases classified elsewhere; Z93.1 Gastrostomy status
CPT/HCPCS: 36415; 71045-TC; 80048-TC; 80164-TC; 80305; 81000-TC; 83735-TC; 84100-TC; 85025-TC; 87040-TC; 87081-TC; 87086-TC; 92521; 92526; A4606; A6402; G0480; J0696; J2060; J7030; J7050; J7060; Z7610

== ENCOUNTER 2017-08-06 03:15 | Inpatient (IN) | payer MEDICARE, OTHER ==
[2017-08-06] VITALS (25 sets, daily range): BP systolic 88–152; BP diastolic 39–80
[~2017-08-06] VITALS: Ht 167.6 cm; Wt 49.0 kg
[~2017-08-06 03:15] MED LIST changes: -DIVA500T7 PO; +Fibersource Hn GT; -LEVO500T75 PO; +OLAN2.5T3 GT; +OLAN5TAB3 GT; -OLAN5TAB3 PO; -TRAZ-147 PO; +TRAZ-214 PO; +VALP250S22 GT
[2017-08-06] MEDS ORDERED: ALBUTEROL FS 2.5 MG/3 ML VIAL.NEB NEB ONE (03:30)
[2017-08-06] MEDS ORDERED: VANCOMYCIN 1 GM in IV D5W 250 ML IV ONE (03:30)
[2017-08-06] MEDS ORDERED: IV NS 0.9% 500 ML BAG IV ONE (03:30)
[2017-08-06] MEDS ORDERED: CLINDAMYCIN 600 MG in IV D5W 100 ML IV ONE (03:30)
[2017-08-06] MEDS ORDERED: ACETAMINOPHEN 650 MG/SUPP.RECT RC ONE ×2 (03:30→03:33)
[2017-08-06] MEDS ORDERED: CEFEPIME 1 GM in IV D5W 50 ML IV ONE (03:30)
[2017-08-06] MEDS ORDERED: IV NS 0.9% 1,000 ML BAG IV ONE (03:30)
[2017-08-06] MEDS ORDERED: CEFEPIME 1 GM VIAL ONE (03:33)
[2017-08-06] MEDS ORDERED: VANCOMYCIN 1 GM VIAL ONE (03:33)
[2017-08-06] MEDS ORDERED: ALBUTEROL FS 2.5 MG/3 ML VIAL.NEB ONE (03:34)
--- NOTE | 2017-08-06 03:35 | NUR ---
PT BBRA FROM [facility] FOR SOB 1HOUR CHESS INSTRUCTOR. PT NOTED TO BE IN RESPIRAOTRY DISTRESS AND SPO2 88% RA. RT BEDSIDE. PT PLACED ON A BIPAP, SETTINGS 15/5 AND 16 100%. GCS OF 8. SKIN PALE AND TAUT, HOT TO TOUCH. PT NOTED TO BE IN ACUTE DISTRESS. MD BEDSIDE FOR EVAL. PT PLCED ON FOREST FIRE FIGHTER AND POX. PT SAFETY AND COMFORT MEASURES IN PLACE. WILL CONTINUE TO MONITOR PT.
[2017-08-06 03:45] LABS: HEMATOCRIT 35 % (39-51); HEMOGLOBIN 11.4 g/dL (13.5-17.5); LYMPHOCYTES # (AUTO) 0.5 /CMM (0.8-4.8); LYMPHOCYTES % (AUTO) 7.3 % (20.0-44.0); MEAN CORPUSCULAR HGB CONC 33 g/dl (31.0-36.0); MEAN CORPUSCULAR VOLUME 90 fL (80-96); MONOCYTES # (AUTO) 0.1 /CMM (0.1-1.30); MONOCYTES % (AUTO) 1.9 % (2.0-12.0); NEUTROPHILS # (AUTO) 6.7 /CMM (1.8-8.9); NEUTROPHILS % (AUTO) 90.8 % (43.0-81.0); PLATELET COUNT (AUTO) 227 /CMM (150-450); RDW COEFFICIENT OF VARIATION 15.1 (11.5-15.0); WHITE BLOOD COUNT (AUTO) 7.4 K/uL (4.3-11.0)
--- NOTE | 2017-08-06 03:47 | NUR ---
RCVD PT IN RESP DISTRESS. PLACED PT ON BIPAP PER MD ORDERS. AMBU BAG AT BEDSIDE. BIPAP PLUGGED INTO RED OUTLET. ALARMS ARE ON AND AUDIBLE. WILL CONTINUE TO MONITOR. Addendum: 08/06/17 at 0350 by PEYTON TURNER RT LATE ENTRY @ [id number]
[2017-08-06] MEDS ORDERED: CLINDAMYCIN 900 MG/6 ML VIAL ONE (03:51)
[2017-08-06 03:56] LABS: INR 1.1 (0.87-1.13)
--- NOTE | 2017-08-06 03:57 | NUR ---
RT AT BEDSIDE FOR ABG DRAW
[2017-08-06 03:59] LABS: ALANINE AMINOTRANSFERASE 38 U/L (12-78); ALBUMIN 2.2 g/dL (3.4-5.0); ALKALINE PHOSPHATASE 81 U/L (46-116); ASPARTATE AMINOTRANSFERASE 51 U/L (15-37); BILIRUBIN,DIRECT 0.1 mg/dL (0.0-0.2); BILIRUBIN,TOTAL 0.3 mg/dL (0.2-1.0); CALCIUM, SERUM 9.9 mg/dL (8.5-10.1); CARBON DIOXIDE 30 mmol/L (21-32); CHLORIDE 110 mmol/L (98-107); CREATININE 1.2 mg/dL (0.6-1.3); GLUCOSE 148 mg/dL (74-106); POTASSIUM 3.6 mmol/L (3.5-5.1); SODIUM SERUM 154 mmol/L (136-145); TOTAL PROTEIN, SERUM 8.7 g/dL (6.4-8.2); UREA NITROGEN, BLOOD 62 mg/dL (7-18)
[2017-08-06 04:02] LABS: TROPONIN I < 0.017 ng/mL (0.00-0.056)
--- NOTE | 2017-08-06 04:05 | NUR ---
CALLED RN SUP FOR ICU BED.
--- NOTE | 2017-08-06 04:08 | NUR ---
CALLED DR. CROSS. LEFT. WAITING FOR CALL BACK.
[2017-08-06 04:10] LABS: ABG BASE EXCESS 3.3 mmol/L; ABG OXYGEN SATURATION 96.7 % (92.0-98.5); ABG PH 7.432 (7.350-7.450); ABG PO2 104.4 mmHg (75.0-100.0); AaDO2 565.6 mmHg; COHb 1.8 % (0.5-1.5); SITE, ABG Right Radial
--- NOTE | 2017-08-06 04:25 | NUR ---
CALLED DR. CROSS [phone]. VM LEFT. WAITING FOR CALL BACK.
--- NOTE | 2017-08-06 04:28 | NUR ---
DR. ZENG SPEAKING TO DR. CROSS REGARDING POC/ ADMISSION.
--- NOTE | 2017-08-06 04:39 | NUR ---
ORDERS RECEIVED BY DR. CROSS. PER TAY WILL REVIEW MED RECON WHEN HE VISITS PATIENT.
--- NOTE | 2017-08-06 04:40 | NUR ---
URINE SAMPLE COLLECTED AND CALLED LAB FOR FUR POLISHER.
--- NOTE | 2017-08-06 04:45 | NUR ---
REPORT GIVEN TO CEMENT TRUCK LOADER ED FOR ALEXEI.
[2017-08-06] MEDS ORDERED: LORA-259 GT (04:50)
[2017-08-06] MEDS ORDERED: BISA-79 RC (04:50)
[2017-08-06] MEDS ORDERED: NA P133E RC (04:50)
[2017-08-06] MEDS ORDERED: MAGN400O21 GT (04:50)
[2017-08-06] MEDS ORDERED: HYDR-552 GT (04:50)
[2017-08-06] MEDS ORDERED: IBUP-1957 GT (04:50)
[2017-08-06] MEDS ORDERED: ESCI5TAB GT (04:50)
[2017-08-06 04:56] LABS: APPEARANCE,URINE SL CLOUDY (CLEAR); BILIRUBIN,URINE NEGATIVE (NEGATIVE); BLOOD, URINE 1+ Ery/uL (NEGATIVE); COLOR,URINE YELLOW (YELLOW); KETONES,URINE NEGATIVE (NEGATIVE); LEUKOCYTE ESTERASE ,URINE NEGATIVE (NEGATIVE); NITRITE, URINE NEGATIVE (NEGATIVE); PROTEIN,URINE 2+ mg/dl (NEGATIVE); UGLUCOSE NEGATIVE (NEGATIVE); UROBILINOGEN,URINE 0.2 EU/dL (0.2)
[2017-08-06 05:13] LABS: BACTERIA,URINE None seen /HPF (None Seen); RBC,URINE 0-2 /HPF (0-2); SQUAMOUS EPITHELIAL CELL,UR Rare /HPF (None Seen); WBC,URINE 0-2 /HPF (0-3)
[2017-08-06 05:14] LABS: URINE AMORPHOUS URATE Rare /HPF (None Seen)
--- NOTE | 2017-08-06 05:29 | NUR ---
RT NOTE LATE ENTRY. @ 0520 PT TRANSFERRED TO ICU WITH NO COMPLICATIONS. BIPAP PLUGGED INTO RED OUTLET. ALARMS ARE ON AND AUDIBLE. AMBU BAG AT BEDSIDE.
[2017-08-06] MEDS ORDERED: IV NS 0.9% 250 ML BAG IV ONE (05:30)
[2017-08-06] MEDS: IV D5/ 0.9% NACL 1,000 ML IV PRN ×2 (05:50→17:38)
[2017-08-06] MEDS ORDERED: MORPHINE SULFATE INJ 2 MG/ML DISP.SYRIN IV PRN (06:00)
[2017-08-06] MEDS ORDERED: PIPERACILLIN /TAZOBACTAM 2.25 G VIAL IV ONE (06:27)
[2017-08-06] MEDS: PIPERACILLIN /TAZOBACTAM 2.255 G in IV D5W 50 ML IV SCH ×4 (06:34→23:27)
--- NOTE | 2017-08-06 07:35 | NUR ---
ORTHOPEDIC TECH PT WAS ADMITTED FROM ER WITH DIAGNOSIS RESPIRATORY FAILURE, PNA, SEPSIS. PT IS ON BIPAP 15/5-16-100%. BILATERAL WHEEZES . SCOPE-SR-ST WITH PAC & BBB. PT IS HARD STICK- HAS ONLY ONE IV ACCESS ON LEFT AC. IV NS BOLUS 1.75 L GIVEN IN ER WELL VANCO, CLINDAMYCIN & MAXIPIME IVPB. IN ICU STARTED D5NS @ 100 M/L & ZOSYN 2.25 G IVPB. PT IS VERY SKINNY, EXTREMITIES ARE CONTRACTED, PT RESPONSE TO PAINFUL STIMULI ONLY. STAGE 2 WOUND ON LEFT HIP. PEG IS CLAMPED. REPORT GIVEN TO STEF GRANDA RN.
--- NOTE | 2017-08-06 07:35 | NUR ---
PATIENT REMOVED FROM BIPAP PLACED ON NRB MASK. NO SOB AT THIS TIME.
--- NOTE | 2017-08-06 07:52 | NUR ---
ICU/RN INITIAL NOTES, AM RECEIVED REPORT FROM NIGHT NURSE. PT TAKEN OFF BIPAP AND PLACED ON NON REBREATHER MASK, TOLERATING WELL. ABG WILL BE DONE AT 0800. PT DOES NOT OPEN EYES. DOES NOT FOLLOW COMMANDS. SINUS ON TELE WITH BBB. LEFT AC PATENT AND INTACT, IV FLUIDS INFUSING ORDERED. PICC LINE ORDER PLACED. PT CONTRACTED, WOUND CONSULT PENDING. GTUBE IN PLACE. NPO AT THIS TIME. ALL NEEDS WILL BE ATTENDED TO, SAFETY MEASURES TAKEN, BED IN LOW POSITION, SIDE RAILS UP,CALL LIGHT WITHIN REACH.
[2017-08-06 08:34] LABS: ABG BASE EXCESS 0.9 mmol/L; ABG OXYGEN SATURATION 98.8 % (92.0-98.5); ABG PCO2 40.8 mmHg (35.0-45.0); ABG PH 7.415 (7.350-7.450); ABG PO2 270.2 mmHg (75.0-100.0); AaDO2 257.4 mmHg; COHb 0.2 % (0.5-1.5); MetHb 0.5 % (0.0-1.5); O2Hb 98.1 % (94.0-97.0); SITE, ABG Right Radial; VENT MODE, BG 80% NRB MASK
[2017-08-06] MEDS ORDERED: FEE PK DOSING 1 MIN EA MC ONE (08:50)
[2017-08-06] MEDS ORDERED: NA PHOS,M-B/NA PHOS,DI-BA 1 EA ENEMA RC PRN (09:00)
[2017-08-06] MEDS ORDERED: MAGNESIUM HYDROXIDE 30 ML UDC GT PRN (09:00)
[2017-08-06] MEDS ORDERED: OLANZAPINE 2.5 MG TABLET GT PRN (09:00)
[2017-08-06] MEDS ORDERED: BISACODYL (5 MG) 5 MG TABLET.DR GT PRN (09:00)
[2017-08-06] MEDS: PANTOPRAZOLE 40 MG VIAL IV SCH (09:36)
[2017-08-06] MEDS: VALPROIC ACID 250 MG/5 ML UDC GT SCH ×3 (09:36→17:34)
[2017-08-06] MEDS: LEVOTHYROXINE SODIUM 50 MCG TABLET PO SCH (09:37)
[2017-08-06] MEDS: DOCUSATE SODIUM 100 MG CAPSULE PO SCH ×2 (09:37→17:34)
[2017-08-06] MEDS: ENOXAPARIN SODIUM 40 MG/0.4 ML DISP.SYRIN SQ SCH (09:37)
[2017-08-06] MEDS ORDERED: HYDROGEL DRESSING 90 GM TUBE TP SCH (10:30)
[2017-08-06] MEDS ORDERED: HYDROGEL DRESSING 90 GM TUBE TP PRN (10:30)
[2017-08-06] MEDS ORDERED: Z GUARD REMEDY 2 OZ OINT TP PRN (10:30)
--- NOTE | 2017-08-06 10:32 | NUR ---
WOUND CARE CONSULT: PT PRESENTS WITH MULTIPLE WOUNDS AND SKIN ISSUES PRESENT ON ADMISSION INCLUDING RT HEEL DEEP TISSUE INJURY (INTACT), SACRAL DEEP TISSUE INJURY (INTACT), LEFT HEEL STAGE 1 REDNESS (NONBLANCHABLE) AND LEFT HIP STAGE 2 ULCER. BLANCHABLE REDNESS NOTED TO LEFT LATERAL ANKLE AND FOOT. PT HAS CONTRACTED LOWER EXTREMITIES. BRUISING NOTED TO ARMS. STERI STRIPS NOTED TO LEFT HAND PRESENT ON ADMISSION AND LEFT IN PLACE. DEFER TO MD FOR HAND. ALL SKIN PROTECTION AND WOUND CARE RECOMMENDATIONS MADE AND DISCUSSED WITH NURSING STAFF. PT ON BONI ISOFLEX LOW AIRLOSS BED. WILL SEE PRN. IN AGREEMENT WITH PLAN OF CARE. Addendum: 08/06/17 at 1035 by FRENCH ALDANA WNDNU Amended: Links added.
--- NOTE | 2017-08-06 10:35 | NUR ---
ICU/RN: WOUND CARE CONSULT DONE. NEW ORDERS RECEIVED. PT ON ISOFLEX BED, CANCELLED KCI MATTRESS PER MD. WILL CARRYOUT WOUND ORDERS.
[2017-08-06] MEDS: ESCITALOPRAM OXALATE (10 MG) 10 MG TABLET GT SCH (10:54)
[2017-08-06] MEDS: Z GUARD REMEDY 2 OZ OINT TP SCH (10:56)
--- NOTE | 2017-08-06 11:00 | NUR ---
ICU/RN: PER MD ORDER, HYATT CATH PLACED. NO URINE OUTPUT NOTED. WILL MONITOR.
[2017-08-06] MEDS ORDERED: PIPERACILLIN /TAZOBACTAM 3.375 G in IV D5W 50 ML IV SCH (12:00)
[2017-08-06] MEDS: LEVOFLOXACIN 750 MG /D5W 150ML 150 ML IV SCH (12:18)
[2017-08-06] MEDS: OLANZAPINE 2.5 MG TABLET GT SCH ×2 (12:20→17:35)
--- NOTE | 2017-08-06 15:00 | NUR ---
ICU/RN: NO URINE OUTPUT NOTED. HYATT CATH REMOVED. BLADDER SCAN DONE, NO RETENTION NOTED. INFORMED. 500ML BOLUS ORDERED TO INFUSE OVER 2 HOURS. WILL CONTINUE TO MONITOR AND ASSESS
[2017-08-06] MEDS ORDERED: IV NS 0.9% 500 ML IV ONE (16:30)
[2017-08-06] MEDS: DONEPEZIL 5 MG TABLET PO SCH (17:35)
[2017-08-06] MEDS: VANCOMYCIN 0.75 GM in IV D5W 250 ML IV SCH (18:05)
[2017-08-06] MEDS: LORAZEPAM INJ 2 MG/ML VIAL IV PRN (18:37)
--- NOTE | 2017-08-06 18:51 | NUR ---
ICU/RN: PT AGITATED, TRYING TO GET OUT OF BED, PRN ATIVAN GIVEN. WILL CONTINUE TO MONITOR.
--- NOTE | 2017-08-06 18:53 | NUR ---
ICU/RN ENDING NOTES,AM REPORT WILL BE ENDORSED TO NIGHT NURSE FOR CONTINUATION OF CARE. PT ON NASAL CANULA, NO ACUTE RESP. DISTRESS. PT AGITATED, ATTEMPTING TO GET OUT OF BED. SINUS ON TELE. DIAPER IN PLACE. URINATING. BLADDER SCAN DONE, NO RETENTION NOTED. ALL NEEDS ATTENDED TO SAFETY MEASURES TAKEN, BED IN LOW POSITION, SIDE RAILS UP, CALL LIGHT WITHIN REACH. MIDLINE PLACED BY DR MANJIT KABA, IV FLUIDS INFUSING ORDERED.
--- NOTE | 2017-08-06 19:30 | NUR ---
FIELD SERVICES DIRECTOR INITIAL NOTES RECEIVED PATIENT AWAKE, RESTLESS, NON-VERBAL,, PASSIVE. NO S/S OF PAIN OR DISCOMFORT. RESPIRATIONS TACHYPNEIC, NOTED WITH CONGESTION, SPO2 85% ON 5LPMO2 VIA NC. SKIN WARM AND DRY TO TOUCH. ON TELE MONITOR ST WITH BBB AND FIRST DEGREE AV BLOCK. WITH DIAMOND MIDLINE PATENT AND INTACT, WITH D5NS AT 100ML/HR. BILATERAL WRIST RESTRAINTS IN PLACE, CIRCULATION CHECKED. SAFETY MEASURES MET. BED ALARM NOT WORKING, PATIENT TOO LIGHT. SIDE RAILS UP AND LOCKED. BED KEPT AT LOWEST POSITION. WILL CONTINUE TO MONITOR.
[2017-08-06] MEDS: OLANZAPINE 5 MG TABLET GT SCH (19:51)
--- NOTE | 2017-08-06 20:00 | NUR ---
CHLOROBUTADIENE SCRUBBER OPERATOR NOTE PLACED PATIENT ON SIMPLE MASK, SUCTIONED BY RT WITH LARGE AMOUNT OF YELLOW SECRETIONS. SPO2 92%. WILL CONTINUE TO MONITOR.
[2017-08-06] MEDS: TRAZODONE 50 MG TABLET PO SCH (21:58)
[2017-08-07] VITALS (21 sets, daily range): BP systolic 98–132; BP diastolic 42–79
--- NOTE | 2017-08-07 | NUR ---
COMEDIAN NOTE NOTED WITH ELEVATED TEMP 100.0, COOLING MEASURES RENDERED. WILL CONTINUE TO MONITOR.
--- NOTE | 2017-08-07 01:00 | NUR ---
ACCESS SERVICES REPRESENTATIVE NOTE TEMP RECHECKED 99.0 WILL CONTINUE TO MONITOR.
--- NOTE | 2017-08-07 04:00 | NUR ---
WASH MILL OPERATOR NOTE BED BATH GIVEN. F/C PLACED BY CHARGE NURSE, WITH NO COMPLICATIONS. WILL CONTINUE TO MONITOR.
[2017-08-07 04:05] LABS: CALCIUM, SERUM 8.6 mg/dL (8.5-10.1); CARBON DIOXIDE 27 mmol/L (21-32); CHLORIDE 117 mmol/L (98-107); CREATININE 0.9 mg/dL (0.6-1.3); GLUCOSE 106 mg/dL (74-106); MAGNESIUM 1.7 mg/dL (1.8-2.4); PHOSPHORUS 2.1 mg/dL (2.5-4.9); SODIUM SERUM 152 mmol/L (136-145); UREA NITROGEN, BLOOD 40 mg/dL (7-18)
--- NOTE | 2017-08-07 04:30 | NUR ---
CONCRETE CRUSHER LOADER OPERATOR NOTE PATIENT RESTLESS, COMBATIVE, TRYING TO GET OUT OF BED. PRN ATIVAN GIVEN IVP. WILL CONTINUE TO MONITOR.
[2017-08-07 04:59] LABS: BASOPHILS % (AUTO) 0.1 % (0.0-2.0); HEMATOCRIT 29 % (39-51); HEMOGLOBIN 9.5 g/dL (13.5-17.5); LYMPHOCYTES # (AUTO) 0.6 /CMM (0.8-4.8); LYMPHOCYTES % (AUTO) 3.7 % (20.0-44.0); MEAN CORPUSCULAR HGB CONC 33 g/dl (31.0-36.0); MEAN CORPUSCULAR VOLUME 90 fL (80-96); MONOCYTES # (AUTO) 1.3 /CMM (0.1-1.30); MONOCYTES % (AUTO) 8.2 % (2.0-12.0); NEUTROPHILS # (AUTO) 14.2 /CMM (1.8-8.9); PLATELET COUNT (AUTO) 190 /CMM (150-450); RDW COEFFICIENT OF VARIATION 15.1 (11.5-15.0); RED BLOOD CELL COUNT(AUTO) 3.21 MIL/uL (4.5-6.0); WHITE BLOOD COUNT (AUTO) 16.1 K/uL (4.3-11.0)
[2017-08-07] MEDS: IV D5/ 0.9% NACL 1,000 ML IV PRN (05:14)
[2017-08-07] MEDS: PIPERACILLIN /TAZOBACTAM 2.255 G in IV D5W 50 ML IV SCH ×3 (05:14→18:31)
[2017-08-07] MEDS: LORAZEPAM INJ 2 MG/ML VIAL IV PRN (06:44)
--- NOTE | 2017-08-07 06:48 | NUR ---
COOK SPECIALTY CLOSING NOTES PATIENT RESTING COMFORTABLY AT THIS TIME. NO RESPIRATORY DISTRESS NOTED, ON 6LPMO2 VIA SIMPLE MASK. KEPT CLEAN AND DRY. F/C PATENT AND INTACT, DRAINING BY GRAVITY. BILATERAL SOFT RESTRAINTS IN PLACE, CIRCULATION CHECKED. ALL SAFETY MEASURES MET. ALL DUE MEDS GIVEN. TURNED AND REPOSITIONED Q2 AND PRN. HOB ELEVATED. SIDE RAILS UP AND LOCKED. BED KEPT AT LOWEST POSITION. WILL ENDORSE CONTINUITY OF CARE TO AM NURSE.
--- NOTE | 2017-08-07 07:46 | NUR ---
ICU/RN INITIAL NOTES, AM RECEIVED REPORT FROM NIGHT NURSE. PT ON 6LITERS SIMPLE MASK, TOLERATING WELL, NO RESPIRATORY DISTRESS NOTED. PT ALERT, CONFUSED, DOES NOT FOLLOW COMMANDS. SINUS ON TELE WITH BBB. LEFT AC PATENT AND INTACT, IV FLUIDS INFUSING ORDERED. RIGHT UPPER ARM MIDLINE PATENT AND INTACT. PT CONTRACTED, TURNED AND REPOSITIONED. BILATERAL WRIST RESTRAINTS IN PLACE, ASSESSED PER PROTOCOL. NPO AT THIS TIME. ALL NEEDS WILL BE ATTENDED TO, SAFETY MEASURES TAKEN, BED IN LOW POSITION, SIDE RAILS UP,CALL LIGHT WITHIN REACH.
[2017-08-07] MEDS: VALPROIC ACID 250 MG/5 ML UDC GT SCH ×3 (08:28→16:50)
[2017-08-07] MEDS: DOCUSATE SODIUM 100 MG CAPSULE PO SCH ×2 (08:29→16:50)
[2017-08-07] MEDS: ENOXAPARIN SODIUM 40 MG/0.4 ML DISP.SYRIN SQ SCH (08:29)
[2017-08-07] MEDS: LEVOTHYROXINE SODIUM 50 MCG TABLET PO SCH (08:29)
[2017-08-07] MEDS: ESCITALOPRAM OXALATE (10 MG) 10 MG TABLET GT SCH (08:29)
[2017-08-07] MEDS: PANTOPRAZOLE 40 MG VIAL IV SCH (08:29)
[2017-08-07] MEDS: Z GUARD REMEDY 2 OZ OINT TP SCH (08:30)
[2017-08-07] MEDS: OLANZAPINE 2.5 MG TABLET GT SCH ×3 (08:32→16:50)
[2017-08-07] MEDS: Magnesium 1GM/D5W 100ML PREMIX 100 ML IV SCH ×2 (09:44→11:00)
[2017-08-07] MEDS: POTASSIUM CHLORIDE 20 MEQ POWDER PACKET GT SCH ×2 (09:44→11:00)
[2017-08-07] MEDS: Potassium Phosphate meq 11 MEQ in IV D5W 100 ML IV SCH ×2 (11:00→14:27)
[2017-08-07] MEDS: LEVOFLOXACIN 750 MG /D5W 150ML 150 ML IV SCH (12:45)
[2017-08-07] MEDS: JEVITY 1.2 CAL 1,000 ML BOTTLE GT PRN (16:47)
[2017-08-07] MEDS: Potassium Chloride 40 MEQ in IV D5/0.45 NACL 1,000 ML IV PRN (16:52)
[2017-08-07] MEDS: VANCOMYCIN 0.75 GM in IV D5W 250 ML IV SCH (16:52)
--- NOTE | 2017-08-07 17:00 | NUR ---
ICU/RN: PT PLACED ON 3LITERS NASAL CANULA, TOLERATING WELL, NO DISTRESS. WILL CONTINUE TO MONITOR AN ASSESS. ORDERS RECEIVED TO TRANSFER PT TO [facility]
--- NOTE | 2017-08-07 17:56 | NUR ---
[facility] RN NOTES RECEIVED PT FROM ICU TRANSPORTED VIA GURNEY, ALERT AND ORIENTED X1, APPEARS TO BE CONFUSED, UNDER THE CARE OF DR. CROSS, ON CARDIAC MONITORING WITH SR WITH PAC, HR OF 74 BPM, WITH FC INTACT AND DRAINING CLEAR, YELLOW URINE, WITH DIAMOND MIDLINE INTACT AND PATENT, WITH ONGOING D5 1/2 NS+20 KCL AT 100 ML/HR, WITH GTUBE PATENT AND INTACT, NO RESIDUAL NOTED, WITH ONGOING FEEDING OF JEVITY AT 20 ML/HR, ASPIRATION PRECAUTION OBSERVED, HOB ELEVATED, BED IN LOCKED AND LOW POSITION, VS TAKEN, PLAN OF CARE DISCUSSED, WILL CONTINUE TO MONITOR
--- NOTE | 2017-08-07 17:57 | NUR ---
ICU/RN: PT TRANSFERRED TO [facility] ROOM 116-1. PT TRANSFERRED PER ACLS GUIDELINES. PT ON 3LITERS NASAL CANULA, NO DISTRESS, MAINTAINING O2 SAT >95%. ALL BELONGINGS AND MEDICATIONS SENT WITH PT. ALL NEEDS ATTENDED TO, SAFETY MEASURES TAKEN, BED IN LOW POSITION, SIDE RAILS UP, TURNED AND REPOSITIONED. REPORT ENDORSED TO BROOK RAMOS. Addendum: 08/07/17 at 1833 by NATHAN AGUIAR RN WITH SEVERE PRODUCTIVE COUGH, NASOPHARYNGEAL SUCTION PRN DONE
[2017-08-07] MEDS: DONEPEZIL 5 MG TABLET PO SCH (18:13)
--- NOTE | 2017-08-07 19:30 | NUR ---
[facility] RN OPENING NOTES RECEIVED REPORT FROM BROOK RAMOS. PATIENT A/A/O X1 W/ CONFUSION & UNABLE TO MAKE NEEDS KNOWN. BREATHING EVEN & UNLABORED W/ O2 @ 3LPM VIA NC. SATING @ 94-95%. PATIENT NOTED W/ DIFFICULTY CLEARING SECRETIONS. SUCTIONED NASAL & ORAL W/ LARGE AMOUNT OF THICK, YELLOW SECRETIONS. ON TELE W/ SINUS RHYTHM W/ PAC, HR 91. NO CARDIAC DISTRESS NOTED. RIGHT UPPER ARM MIDLINE INTACT & PATENT W/ DRESSING CDI & IVF D5 1/2 NS W/ 40 KCL INFUSING WELL @ 100 ML/HR. G-TUBE FLUSHING WELL W/ GTF JEVITY @ 20 ML/HR. NO RESIDUAL NOTED @ THIS TIME. HYATT CATH DRAINING YELLOW URINE. SAFETY MEASURES IN PLACE & HOB ELEVATED FOR ASPIRATION PRECAUTIONS. BILATERAL SOFT WRIST RESTRAINTS APPLIED. WILL CONTINUE TO MONITOR.
[2017-08-07] MEDS: OLANZAPINE 5 MG TABLET GT SCH (20:08)
[2017-08-07] MEDS: TRAZODONE 50 MG TABLET PO SCH (21:50)
[2017-08-08] VITALS: BP 113/58
[2017-08-08] MEDS: PIPERACILLIN /TAZOBACTAM 2.255 G in IV D5W 50 ML IV SCH ×4 (00:29→17:08)
[2017-08-08 04:00] VITALS: BP 114/53
[2017-08-08] MEDS: Potassium Chloride 40 MEQ in IV D5/0.45 NACL 1,000 ML IV PRN (05:32)
[2017-08-08 06:22] LABS: EOSINOPHILS % (AUTO) 0.5 % (0.0-6.0); HEMATOCRIT 27 % (39-51); HEMOGLOBIN 8.8 g/dL (13.5-17.5); LYMPHOCYTES # (AUTO) 0.8 /CMM (0.8-4.8); LYMPHOCYTES % (AUTO) 6.5 % (20.0-44.0); MEAN CORPUSCULAR HGB CONC 33 g/dl (31.0-36.0); MEAN CORPUSCULAR VOLUME 90 fL (80-96); MONOCYTES # (AUTO) 0.5 /CMM (0.1-1.30); MONOCYTES % (AUTO) 3.8 % (2.0-12.0); NEUTROPHILS # (AUTO) 10.6 /CMM (1.8-8.9); NEUTROPHILS % (AUTO) 89.2 % (43.0-81.0); PLATELET COUNT (AUTO) 164 /CMM (150-450); RED BLOOD CELL COUNT(AUTO) 3.01 MIL/uL (4.5-6.0); WHITE BLOOD COUNT (AUTO) 11.9 K/uL (4.3-11.0)
[2017-08-08 06:38] LABS: CALCIUM, SERUM 8.2 mg/dL (8.5-10.1); CARBON DIOXIDE 27 mmol/L (21-32); CHLORIDE 116 mmol/L (98-107); CREATININE 0.9 mg/dL (0.6-1.3); GLUCOSE 106 mg/dL (74-106); MAGNESIUM 1.8 mg/dL (1.8-2.4); POTASSIUM 3.3 mmol/L (3.5-5.1); SODIUM SERUM 150 mmol/L (136-145); UREA NITROGEN, BLOOD 37 mg/dL (7-18)
[2017-08-08 08:00] VITALS: BP 106/50
[2017-08-08] MEDS: OLANZAPINE 2.5 MG TABLET GT SCH ×3 (08:16→17:08)
[2017-08-08] MEDS: ESCITALOPRAM OXALATE (10 MG) 10 MG TABLET GT SCH (08:16)
[2017-08-08] MEDS: LEVOTHYROXINE SODIUM 50 MCG TABLET PO SCH (08:16)
[2017-08-08] MEDS: VALPROIC ACID 250 MG/5 ML UDC GT SCH ×3 (08:16→17:08)
[2017-08-08] MEDS: PANTOPRAZOLE 40 MG VIAL IV SCH (08:16)
[2017-08-08] MEDS: DOCUSATE SODIUM 100 MG CAPSULE PO SCH ×2 (08:17→17:08)
[2017-08-08] MEDS: Z GUARD REMEDY 2 OZ OINT TP SCH (08:17)
[2017-08-08] MEDS: ENOXAPARIN SODIUM 40 MG/0.4 ML DISP.SYRIN SQ SCH (08:20)
[2017-08-08 12:00] VITALS: BP 128/40
[2017-08-08] MEDS: LEVOFLOXACIN 750 MG /D5W 150ML 150 ML IV SCH (13:25)
[2017-08-08] MEDS ORDERED: POTASSIUM CHLORIDE 20 MEQ POWDER PACKET GT SCH (14:00)
[2017-08-08 16:00] VITALS: BP 128/59
[2017-08-08] MEDS: LACTOBACILLUS RHAMNOSUS GG 1 EACH CAP.SPRINK GT SCH (17:39)
[2017-08-08] MEDS: DONEPEZIL 5 MG TABLET PO SCH (17:41)
--- NOTE | 2017-08-08 19:30 | NUR ---
YORDY RN OPENING NOTES RECEIVED REPORT FROM TIFFANY Millard RN. PATIENT A/A/O X1 W/ CONFUSION & UNABLE TO MAKE NEEDS KNOWN. BREATHING EVEN & UNLABORED W/ O2 @ 3LPM VIA NC. SATING @ 94-95%. PATIENT NOTED W/ DIFFICULTY CLEARING SECRETIONS. SUCTIONED NASAL & ORAL W/ LARGE AMOUNT OF THICK, YELLOW SECRETIONS. ON TELE W/ SINUS RHYTHM W/ PAC, HR 84. NO CARDIAC DISTRESS NOTED. RIGHT UPPER ARM MIDLINE INTACT & PATENT W/ DRESSING CDI & IVF D5 1/2 NS W/ 40 KCL INFUSING WELL @ 100 ML/HR. G-TUBE FLUSHING WELL W/ GTF JEVITY @ 30 ML/HR. NO RESIDUAL NOTED @ THIS TIME. HYATT CATH DRAINING YELLOW URINE. SAFETY MEASURES IN PLACE & HOB ELEVATED FOR ASPIRATION PRECAUTIONS. BILATERAL SOFT WRIST RESTRAINTS APPLIED. WILL CONTINUE TO MONITOR.
[2017-08-08 20:00] VITALS: BP 123/65
[2017-08-08] MEDS: VANCOMYCIN 0.75 GM in IV D5W 250 ML IV SCH (20:44)
[2017-08-08] MEDS: OLANZAPINE 5 MG TABLET GT SCH (20:44)
[2017-08-08] MEDS: TRAZODONE 50 MG TABLET PO SCH (23:06)
[2017-08-09] VITALS (7 sets, daily range): BP systolic 113–139; BP diastolic 65–90
[2017-08-09] MEDS: PIPERACILLIN /TAZOBACTAM 2.255 G in IV D5W 50 ML IV SCH ×5 (01:04→23:58)
[2017-08-09] MEDS: LORAZEPAM INJ 2 MG/ML VIAL IV PRN (01:05)
[2017-08-09] MEDS: Potassium Chloride 40 MEQ in IV D5/0.45 NACL 1,000 ML IV PRN ×2 (01:06→16:20)
[2017-08-09] MEDS: VANCOMYCIN 0.75 GM in IV D5W 250 ML IV SCH ×2 (06:21→18:15)
[2017-08-09 06:59] LABS: CALCIUM, SERUM 7.9 mg/dL (8.5-10.1); CARBON DIOXIDE 25 mmol/L (21-32); CHLORIDE 111 mmol/L (98-107); CREATININE 0.7 mg/dL (0.6-1.3); GLUCOSE 133 mg/dL (74-106); POTASSIUM 3.3 mmol/L (3.5-5.1); SODIUM SERUM 144 mmol/L (136-145); UREA NITROGEN, BLOOD 23 mg/dL (7-18)
--- NOTE | 2017-08-09 07:29 | NUR ---
MEAT BONER AND SLICER OPENING NOTES RECEIVED PATIENT IN BED AWAKE, A/O X1. UNABLE TO MAKE NEEDS KNOWN, SEEMS COMFORTABLE WITH NO SIGNS OF PAIN LIKE FACIAL GRIMACING OR RESTLESSNESS NOTED. ON O2 @ 3LPM VIA N/C, BREATHING EVEN AND UNLABORED. ON TELE-MONITORING W/ CURRENT READING OF SINUS RHYTHM W/ PVC'S, HR 75, NO CARDIAC DISTRESS NOTED. DIAMOND MIDLINE INTACT & PATENT W/ DRESSING CDI & IVF D5 1/2 NS W/ 40 KCL INFUSING WELL @ 100 ML/HR. G-TUBE IN PLACE WITH FEEDING OF JEVITY 1.2@ 300 ML/HR IN PROGRESS, TOLERATING FEEDING WELL. ASPIRATION PRECAUTIONS MAINTAINED. HYATT CATH DRAINING CLEAR YELLOW URINE TO BEDSIDE URINARY BAG. SAFETY MEASURES IN PLACE. BILATERAL SOFT WRIST RESTRAINTS APPLIED, WITH GOOD PERIPHERAL PULSES NOTED. BED IN LOW/LOCKED POSITION WITH SIDE-RAILS UP X3. CALL LIGHT WITHIN REACH. WILL CONTINUE TO MONITOR. Addendum: 08/09/17 at 1855 by CYNTHIA CARDOZA RN CORRECTION: G-TUBE FEEDING IS 30ML/HR AND NOT 300ML/HR.
[2017-08-09] MEDS: LEVOTHYROXINE SODIUM 50 MCG TABLET PO SCH (07:57)
[2017-08-09] MEDS: OLANZAPINE 2.5 MG TABLET GT SCH ×3 (07:59→16:35)
[2017-08-09] MEDS: DOCUSATE SODIUM 100 MG CAPSULE PO SCH ×2 (08:57→16:35)
[2017-08-09] MEDS: VALPROIC ACID 250 MG/5 ML UDC GT SCH ×3 (08:57→16:36)
[2017-08-09] MEDS: PANTOPRAZOLE 40 MG VIAL IV SCH (08:57)
[2017-08-09] MEDS: LACTOBACILLUS RHAMNOSUS GG 1 EACH CAP.SPRINK GT SCH ×2 (08:58→16:35)
[2017-08-09] MEDS: ESCITALOPRAM OXALATE (10 MG) 10 MG TABLET GT SCH (08:58)
[2017-08-09] MEDS: Z GUARD REMEDY 2 OZ OINT TP SCH (08:58)
[2017-08-09] MEDS: ENOXAPARIN SODIUM 40 MG/0.4 ML DISP.SYRIN SQ SCH (08:59)
[2017-08-09] MEDS: POTASSIUM CL. PREMIX PERIPHER. 50 ML IV SCH ×2 (09:59→11:13)
[2017-08-09] MEDS: LEVOFLOXACIN 750 MG /D5W 150ML 150 ML IV SCH (11:44)
[2017-08-09] MEDS: JEVITY 1.2 CAL 1,000 ML BOTTLE GT PRN (11:49)
[2017-08-09] MEDS ORDERED: POTASSIUM CHLORIDE 20 MEQ TAB.PRT.SR PO ONE (13:00)
--- NOTE | 2017-08-09 13:41 | NUR ---
RN NOTES PATIENT NOTED WITH LOW K LEVEL 3.3, REPLACED WITH 2 BAGS OF 10MEQ/50ML. WILL CONTINUE TO MONITOR.
--- NOTE | 2017-08-09 16:22 | NUR ---
RN NOTES PATIENT SUPPLEMENTAL 02 VIA N/C TITRATED FROM 3LPM TO 2LPM THIS AFTERNOON BY RT, SP02 NOTED @ 98% WITH NO SOB. WILL CONTINUE TO MONITOR.
[2017-08-09] MEDS: DONEPEZIL 5 MG TABLET PO SCH (17:18)
--- NOTE | 2017-08-09 18:50 | NUR ---
HEAVY CLEANER CLOSING NOTES PATIENT IN BED LYING @ MODERATE HIGH BACKREST POSITION. A/O X1. VERBALLY RESPONSIVE AT TIMES. ON O2 VIA N/C @ 2LPM AT THIS TIME, TOLERATING WITH NO ACUTE RESPIRATORY DISTRESS NOTED. ON TELE-MONITORING W/ CURRENT READING OF SINUS RHYTHM WITH HR OF 80, NO CARDIAC DISTRESS NOTED. DIAMOND MIDLINE INTACT & PATENT W/ DRESSING C/D/I, IVF D5 1/2 NS W/ 40 KCL INFUSING WELL @ 100 ML/HR. G-TUBE IN PLACE WITH FEEDING OF JEVITY 1.2@ 30 ML/HR IN PROGRESS, TOLERATING FEEDING WELL. ASPIRATION PRECAUTIONS MAINTAINED. HYATT CATH DRAINING CLEAR YELLOW URINE TO BEDSIDE URINARY BAG, HYATT CARE DONE. SAFETY MEASURES IN PLACE. HOB KEPT ELEVATED TO PREVENT ASPIRATION. BILATERAL SOFT WRIST RESTRAINTS APPLIED, WITH GOOD PERIPHERAL PULSES NOTED. BED IN LOW/LOCKED POSITION WITH SIDE-RAILS UP X3. CALL LIGHT WITHIN REACH. ALL NEEDS AND CARE PROVIDED WELL. WILL ENDORSE TO MANAGER TRACK NURSE FOR ALEXEI. .
--- NOTE | 2017-08-09 19:30 | NUR ---
RN NOTES RECEIVED PT. AWAKE, SR WITH BBB ON TELE MONITOR WITH PAC HR-98, YOU CAN HEAR CRACKLES SOUND, AND O2 SAT IS ON 88%, ASKED RT TO DO DEEP SUCTIONING, RT REMOVED A LOT OF SECRETIONS, MOUTH SUCTIONS WAS DONE TOO. PT IS ON BILATERAL SOFT WRIST RESTRAINTS, NOTED GOOD CIRCULATION. PT IS ON JEVITY RUNNING @ 30ML/HR, NOT IN DISTRESS, NO PAIN, NOTED, SIDERAILSUP2, CONTINUE TO MONITOR
[2017-08-09] MEDS: OLANZAPINE 5 MG TABLET GT SCH (20:41)
[2017-08-09] MEDS: TRAZODONE 50 MG TABLET PO SCH (22:14)
[2017-08-10] VITALS (7 sets, daily range): BP systolic 80–148; BP diastolic 44–75
--- NOTE | 2017-08-10 01:12 | NUR ---
RN NOTES PT IS TRYING TO GET OUT OF BED, ZYPREXA 2.5MG GT GIVEN ORDERED, V/S STABLE
[2017-08-10] MEDS: PIPERACILLIN /TAZOBACTAM 2.255 G in IV D5W 50 ML IV SCH ×3 (05:15→18:45)
[2017-08-10 05:22] LABS: BASOPHILS % (AUTO) 0.1 % (0.0-2.0); EOSINOPHILS % (AUTO) 1.3 % (0.0-6.0); HEMATOCRIT 26 % (39-51); HEMOGLOBIN 8.6 g/dL (13.5-17.5); LYMPHOCYTES # (AUTO) 1.2 /CMM (0.8-4.8); LYMPHOCYTES % (AUTO) 13.1 % (20.0-44.0); MEAN CORPUSCULAR HGB CONC 34 g/dl (31.0-36.0); MEAN CORPUSCULAR VOLUME 88 fL (80-96); MONOCYTES # (AUTO) 0.5 /CMM (0.1-1.30); MONOCYTES % (AUTO) 5.6 % (2.0-12.0); NEUTROPHILS # (AUTO) 7.1 /CMM (1.8-8.9); NEUTROPHILS % (AUTO) 79.9 % (43.0-81.0); PLATELET COUNT (AUTO) 140 /CMM (150-450); RED BLOOD CELL COUNT(AUTO) 2.93 MIL/uL (4.5-6.0); WHITE BLOOD COUNT (AUTO) 8.9 K/uL (4.3-11.0)
[2017-08-10 06:26] LABS: CALCIUM, SERUM 7.8 mg/dL (8.5-10.1); CARBON DIOXIDE 25 mmol/L (21-32); CHLORIDE 107 mmol/L (98-107); CREATININE 0.8 mg/dL (0.6-1.3); GLUCOSE 99 mg/dL (74-106); POTASSIUM 3.3 mmol/L (3.5-5.1); SODIUM SERUM 141 mmol/L (136-145); UREA NITROGEN, BLOOD 15 mg/dL (7-18); VANCOMYCIN,TROUGH 11 ug/ml (12-20)
[2017-08-10 06:28] LABS: MAGNESIUM 1.2 mg/dL (1.8-2.4)
[2017-08-10] MEDS: VANCOMYCIN 0.75 GM in IV D5W 250 ML IV SCH ×2 (06:31→17:25)
--- NOTE | 2017-08-10 06:37 | NUR ---
RN NOTES PT. AWAKE, G-TUBE FEEDING IN PLACE, NO RESIDUAL NOTED, MORNING CARE RENDERED, SIDERAILSUPX2, PT. NEEDS ATTENDED
--- NOTE | 2017-08-10 07:00 | NUR ---
RN OPENING NOTES RECEIVED PT. AWAKE, ON TELE MONITOR WITH SR 66WITH BBB . CAN HEAR CRACKLES SOUND, AND O2 SAT IS ON 98%, PATIENT HAS LOT SECRETIONS.PT IS ON BILATERAL SOFT WRIST RESTRAINTS, NOTED GOOD CIRCULATION. PT IS ON GTF JEVITY AT @ 30ML/HR, HAS HYATT CATH DRAINING CLEAR YELLOW URINE.NOT IN DISTRESS, NO PAIN, NOTED,CALL LIGHT IN REACH. SIDERAILSUP2, CONTINUE TO MONITOR
[2017-08-10] MEDS: VALPROIC ACID 250 MG/5 ML UDC GT SCH ×3 (08:21→16:13)
[2017-08-10] MEDS: DOCUSATE SODIUM 100 MG CAPSULE PO SCH ×2 (08:22→16:13)
[2017-08-10] MEDS: LEVOTHYROXINE SODIUM 50 MCG TABLET PO SCH (08:22)
[2017-08-10] MEDS: PANTOPRAZOLE 40 MG VIAL IV SCH (08:22)
[2017-08-10] MEDS: OLANZAPINE 2.5 MG TABLET GT SCH ×3 (08:22→16:13)
[2017-08-10] MEDS: LACTOBACILLUS RHAMNOSUS GG 1 EACH CAP.SPRINK GT SCH ×2 (08:22→16:13)
[2017-08-10] MEDS: ESCITALOPRAM OXALATE (10 MG) 10 MG TABLET GT SCH (08:22)
[2017-08-10] MEDS: ENOXAPARIN SODIUM 40 MG/0.4 ML DISP.SYRIN SQ SCH (08:23)
[2017-08-10] MEDS: Z GUARD REMEDY 2 OZ OINT TP SCH (08:24)
[2017-08-10] MEDS: Magnesium 1GM/D5W 100ML PREMIX 100 ML IV SCH ×4 (10:19→21:14)
[2017-08-10] MEDS: LEVOFLOXACIN 750 MG /D5W 150ML 150 ML IV SCH (11:26)
--- NOTE | 2017-08-10 15:50 | NUR ---
RN NOTE PATIENT NOTED WITH BP OF 80/44,NO SOB NO DISTRESS NOTED.DR.TIM KABA MADE AWARE.GOT AN ORDER FOR IV N 250ML BOLUS AND REPEAT IF NEEDED.MADE AWARE ALSO ABOUT LOW POTASSIUM,PATIENT IS ON D21/2NS WITH [id number] 100ML/HR.GOT AN ORDER FOR KCL 40 MEQX1.
[2017-08-10] MEDS ORDERED: POTASSIUM CHLORIDE 20 MEQ TAB.PRT.SR PO ONE (16:15)
[2017-08-10] MEDS ORDERED: IV NS 0.9% 250 ML IV ONE (16:15)
--- NOTE | 2017-08-10 16:30 | NUR ---
RN NOTE RECHECKED BP IS 101/56
[2017-08-10] MEDS: LORAZEPAM INJ 2 MG/ML VIAL IV PRN (17:49)
[2017-08-10] MEDS: DONEPEZIL 5 MG TABLET PO SCH (18:07)
--- NOTE | 2017-08-10 18:59 | NUR ---
RN SHIFT END NOTES PT IN BED . SLEEPING, ON TELE MONITOR WITH SR 62WITH BBB . ON O2 VIA NC 3L, AND O2 SAT IS ON 98%, PATIENT HAS LOT SECRETIONS.NO SOB NO DISTRESS NOTED DURING SHIFT..PT IS ON BILATERAL SOFT WRIST RESTRAINTS, NOTED GOOD CIRCULATION. PT IS ON GTF JEVITY AT @ 30ML/HR, HAS HYATT CATH DRAINING CLEAR YELLOW URINE., NO PAIN, NOTED,CALL LIGHT IN REACH. SIDERAILSUP3, WILL ENDORSE TO PM NURSE FOR ALEXEI
--- NOTE | 2017-08-10 19:35 | NUR ---
INBOUND CUSTOMER SERVICE REPRESENTATIVE OPENING NOTES RECEIVED PT SITTING UPRIGHT IN BED. PT IS AWAKE AND RESPONSIVE, AFEBRILE. RESPIRATIONS ARE EVEN AND UNLABORED, TOLERATING O2 @3L/MIN SAT 98% VIA NC. NO FACIAL GRIMACING NOTED AT THIS TIME. IV SITE INTACT, NO INFILTRATION NOTED. DRESSING KEPT CLEAN AND DRY. SAFETY MEASURES ARE IN PLACE. CALL LIGHT IS LEFT WITHIN REACH. WILL CONTINUE TO MONITOR THROUGHOUT SHIFT.
[2017-08-10] MEDS: OLANZAPINE 5 MG TABLET GT SCH (20:07)
[2017-08-10] MEDS: Potassium Chloride 40 MEQ in IV D5/0.45 NACL 1,000 ML IV PRN (20:08)
[2017-08-10] MEDS: TRAZODONE 50 MG TABLET PO SCH (21:14)
[2017-08-11] VITALS: BP_SYST 119; BP_SYST 130; BP_DIAS 55; BP_DIAS 71
[2017-08-11] MEDS: PIPERACILLIN /TAZOBACTAM 2.255 G in IV D5W 50 ML IV SCH ×2 (00:15→05:06)
[2017-08-11] MEDS: JEVITY 1.2 CAL 1,000 ML BOTTLE GT PRN (03:34)
[2017-08-11 04:00] VITALS: BP 115/54
[2017-08-11] MEDS: VANCOMYCIN 0.75 GM in IV D5W 250 ML IV SCH ×2 (05:42→19:44)
[2017-08-11] MEDS: LORAZEPAM 1 MG TABLET GT PRN ×2 (06:37→21:47)
--- NOTE | 2017-08-11 06:45 | NUR ---
BAND SHOVER CLOSING NOTES ALL DUE MEDS GIVEN. AWAKE AND RESPONSIVE. AFEBRILE, RESPIRATIONS ARE EVEN AND UNLABORED, NOT IN ANY ACUTE DISTRESS NOTED. NO FACIAL GRIMACING NOTED. IV SITE INTACT, FLUIDS RUNNING AND TOLERATING WELL. NO INFILTRATION NOTED. SAFETY MEASURES ARE IN PLACE. WILL ENDORSE TO NEXT SHIFT FOR CONTINUITY OF CARE.
--- NOTE | 2017-08-11 07:25 | NUR ---
RN NOTES PT RECEIVED IN BED. A/O X1 CONFUSED. TELE SR74. PT STABLE. NEGATIVE SIGNS OF DISTRESS. HYATT CATHETER IN PLACE DRAINING WITH GRAVITY/ INTACT. DIAMOND MIDLINE INTACT NEGATIVE SIGNS OF INFECTION. WILL CONTINUE TO MONITOR. BED LOCKED LOWEST POSITION. CALL LIGHT WITHIN REACH.
[2017-08-11 08:00] VITALS: BP 118/40
[2017-08-11] MEDS: PANTOPRAZOLE 40 MG VIAL IV SCH (08:46)
[2017-08-11] MEDS: VALPROIC ACID 250 MG/5 ML UDC GT SCH ×3 (08:46→17:15)
[2017-08-11] MEDS: DOCUSATE SODIUM 100 MG CAPSULE PO SCH ×2 (08:48→17:15)
[2017-08-11] MEDS: OLANZAPINE 2.5 MG TABLET GT SCH ×3 (08:48→17:16)
[2017-08-11] MEDS: ESCITALOPRAM OXALATE (10 MG) 10 MG TABLET GT SCH (08:48)
[2017-08-11] MEDS: LACTOBACILLUS RHAMNOSUS GG 1 EACH CAP.SPRINK GT SCH ×2 (08:48→17:15)
[2017-08-11] MEDS: ENOXAPARIN SODIUM 40 MG/0.4 ML DISP.SYRIN SQ SCH (08:49)
[2017-08-11 10:20] LABS: BASOPHILS % (AUTO) 0.2 % (0.0-2.0); EOSINOPHILS % (AUTO) 2.6 % (0.0-6.0); HEMATOCRIT 28 % (39-51); HEMOGLOBIN 9.2 g/dL (13.5-17.5); LYMPHOCYTES # (AUTO) 1.1 /CMM (0.8-4.8); LYMPHOCYTES % (AUTO) 12.6 % (20.0-44.0); MEAN CORPUSCULAR HGB CONC 33 g/dl (31.0-36.0); MEAN CORPUSCULAR VOLUME 89 fL (80-96); MONOCYTES # (AUTO) 0.5 /CMM (0.1-1.30); MONOCYTES % (AUTO) 5.8 % (2.0-12.0); NEUTROPHILS # (AUTO) 7.1 /CMM (1.8-8.9); NEUTROPHILS % (AUTO) 78.8 % (43.0-81.0); PLATELET COUNT (AUTO) 140 /CMM (150-450); RDW COEFFICIENT OF VARIATION 14.4 (11.5-15.0); WHITE BLOOD COUNT (AUTO) 9.1 K/uL (4.3-11.0)
[2017-08-11 10:27] LABS: CARBON DIOXIDE 26 mmol/L (21-32); CHLORIDE 107 mmol/L (98-107); CREATININE 0.7 mg/dL (0.6-1.3); GLUCOSE 109 mg/dL (74-106); MAGNESIUM 2.3 mg/dL (1.8-2.4); PHOSPHORUS 2.5 mg/dL (2.5-4.9); SODIUM SERUM 140 mmol/L (136-145); UREA NITROGEN, BLOOD 11 mg/dL (7-18)
[2017-08-11] MEDS: LEVOFLOXACIN 750 MG /D5W 150ML 150 ML IV SCH (11:54)
[2017-08-11] MEDS: Z GUARD REMEDY 2 OZ OINT TP SCH (11:55)
[2017-08-11] MEDS: LEVOTHYROXINE SODIUM 50 MCG TABLET PO SCH (11:56)
[2017-08-11 12:00] VITALS: BP 118/40
[2017-08-11] MEDS: Potassium Chloride 40 MEQ in IV D5/0.45 NACL 1,000 ML IV PRN (12:03)
[2017-08-11] MEDS: PIPERACILLIN /TAZOBACTAM 3.375 G in IV D5W 50 ML IV SCH ×3 (14:04→23:35)
[2017-08-11 16:00] VITALS: BP 118/40
[2017-08-11] MEDS: DONEPEZIL 5 MG TABLET PO SCH (17:16)
--- NOTE | 2017-08-11 19:10 | NUR ---
RN NOTES A/O X1 CONFUSED. PT STABLE. NEGATIVE SIGNS OF DISTRESS. HYATT CATHETER IN PLACE DRAINING WITH GRAVITY/ INTACT. GOOD PULSE, MOTOR AND SENSATION IN ALL EXTREMITIES. DIAMOND MIDLINE INTACT NEGATIVE SIGNS OF INFECTION. WILL CONTINUE TO MONITOR. BED LOCKED LOWEST POSITION. CALL LIGHT WITHIN REACH. WILL ENDORSE TO ONCOMING NURSE.
[2017-08-11 20:00] VITALS: BP 128/60
--- NOTE | 2017-08-11 20:00 | NUR ---
RECIEVED CONFUED EYES OPEN GOOD EYE CONTACT KICKING AT THOSE WHO ARE AT THE BEDSIDE. gt WITH JEVIT RUNNING W/O PROBLEMS. O2 AT3 LITERS SAT 97%. CONFUSED AND YELLING LOADLY "HELP ME"
[2017-08-11] MEDS: OLANZAPINE 5 MG TABLET GT SCH (20:38)
[2017-08-11] MEDS: TRAZODONE 50 MG TABLET PO SCH (21:47)
[2017-08-12] MEDS: HYDROCODONE/APAP 5/325MG 1 EACH TABLET GT PRN (01:13)
[2017-08-12] MEDS: JEVITY 1.2 CAL 1,000 ML BOTTLE GT PRN (01:37)
[2017-08-12] MEDS: PIPERACILLIN /TAZOBACTAM 3.375 G in IV D5W 50 ML IV SCH ×4 (05:35→23:15)
[2017-08-12] MEDS: Potassium Chloride 40 MEQ in IV D5/0.45 NACL 1,000 ML IV PRN ×2 (05:41→21:05)
[2017-08-12 05:51] LABS: BASOPHILS % (AUTO) 0.2 % (0.0-2.0); EOSINOPHILS % (AUTO) 2.1 % (0.0-6.0); HEMATOCRIT 25 % (39-51); HEMOGLOBIN 8.2 g/dL (13.5-17.5); LYMPHOCYTES # (AUTO) 0.7 /CMM (0.8-4.8); LYMPHOCYTES % (AUTO) 8.7 % (20.0-44.0); MEAN CORPUSCULAR HGB CONC 33 g/dl (31.0-36.0); MEAN CORPUSCULAR VOLUME 88 fL (80-96); MONOCYTES # (AUTO) 0.7 /CMM (0.1-1.30); NEUTROPHILS # (AUTO) 6.6 /CMM (1.8-8.9); PLATELET COUNT (AUTO) 148 /CMM (150-450); RDW COEFFICIENT OF VARIATION 14.2 (11.5-15.0); RED BLOOD CELL COUNT(AUTO) 2.84 MIL/uL (4.5-6.0); WHITE BLOOD COUNT (AUTO) 8.2 K/uL (4.3-11.0)
--- NOTE | 2017-08-12 05:58 | NUR ---
CLOSING NOTES : HE WAS RESTLESS AND KICKING AND YELLING LOUDLY "HELP ME" BUT GIVEN A NORCO HE WENT OFF TO SLEEP. SATS 98 -100% 3 LITERS CONTINIOUS PULSE OX IN USE. LEFT HIP CLEANED WITH NSS AND PATTED DRY MEPILEX APPLIED/ SACRAL REDDNESS SEEN MEPILEX APPLIED TURNED AND REPOSITIONED WRIST RETRAINTS ON REMOVED WHEN I WAS IN THE ROOM NOTED HE WILL PULL OFF HIS N/C AND PULSE OV PROBE
[2017-08-12] MEDS: VANCOMYCIN 0.75 GM in IV D5W 250 ML IV SCH ×2 (06:07→18:01)
[2017-08-12 06:21] LABS: CALCIUM, SERUM 7.7 mg/dL (8.5-10.1); CARBON DIOXIDE 30 mmol/L (21-32); CHLORIDE 110 mmol/L (98-107); CREATININE 0.7 mg/dL (0.6-1.3); GLUCOSE 112 mg/dL (74-106); MAGNESIUM 2.1 mg/dL (1.8-2.4); PHOSPHORUS 2.8 mg/dL (2.5-4.9); POTASSIUM 4.2 mmol/L (3.5-5.1); SODIUM SERUM 142 mmol/L (136-145); UREA NITROGEN, BLOOD 10 mg/dL (7-18)
--- NOTE | 2017-08-12 07:50 | NUR ---
MS RN NOTE: RECEIVED PATIENT IN BED, AWAKE, ALERT AND ABLE TO MAKE HIS NEEDS KNOWN. RESPIRATION IS EVEN AND UNLABORED. ON O2 3L/MIN VIA NC AND SATURATING 97%. (R) UA MIDLINE NOTED INTACT AND PATENT INFUSING D5/0.45 NACL + KCL 40MEQ @100ML/HR. PATIENT NOTED WITH (B) SOFT WRIST RESTRAINTS FOR SAFETY. PLACED IN FRONT OF THE NURSING STATION FOR CLOSE MONITORING WITH THE STAFF AND DUE TO BEHAVIOR OF BEING AGGRESSIVE TOWARDS STAFF. BED ALARMED AND LOCKED AT ALL TIMES. CALL LIGHT WITHIN REACH. NEEDS ANTICIPATED.
[2017-08-12 08:00] VITALS: BP 107/47
[2017-08-12] MEDS: OLANZAPINE 2.5 MG TABLET GT SCH ×3 (08:30→17:31)
[2017-08-12] MEDS: LEVOTHYROXINE SODIUM 50 MCG TABLET PO SCH (08:30)
--- NOTE | 2017-08-12 08:56 | NUR ---
MS RN NOTE: CALLED AND PAGED DR. MANJIT KABA AND REPORTED TO HIM ABOUT THE PATIENT'S BP @0800. BP= 107/47 HR= 62. RECHECKED IT AND IT WAS 88/45 HR= 65. AWAITING FOR MD'S RESPONSE. PATIENT REMAINED ALERT TO HIS NAME AND NO CHANGES ON HIS CURRENT MENTAL STATUS.
--- NOTE | 2017-08-12 09:28 | NUR ---
MS RN NOTE: RECEIVED AN ORDER FROM DR. MANJIT KABA AND HE ORDERED AN IV BOLUS OF NS 250ML X 1. ORDER, NOTED AND ACKNOWLEDGED.
[2017-08-12] MEDS ORDERED: IV NS 0.9% 250 ML IV ONE (09:30)
[2017-08-12] MEDS: VALPROIC ACID 250 MG/5 ML UDC GT SCH ×3 (09:31→17:31)
[2017-08-12] MEDS: DOCUSATE SODIUM 100 MG CAPSULE PO SCH ×2 (09:31→17:31)
[2017-08-12] MEDS: ESCITALOPRAM OXALATE (10 MG) 10 MG TABLET GT SCH (09:32)
[2017-08-12] MEDS: LACTOBACILLUS RHAMNOSUS GG 1 EACH CAP.SPRINK GT SCH ×2 (09:32→17:31)
[2017-08-12] MEDS: PANTOPRAZOLE 40 MG VIAL IV SCH (09:32)
[2017-08-12] MEDS: ENOXAPARIN SODIUM 40 MG/0.4 ML DISP.SYRIN SQ SCH (09:33)
[2017-08-12] MEDS: Z GUARD REMEDY 2 OZ OINT TP SCH (09:35)
--- NOTE | 2017-08-12 10:33 | NUR ---
MS RN NOTE: RECHECKED THE PATIENT'S BP HR 70. DR. MANJIT KABA WAS MADE AWARE.
[2017-08-12] MEDS: LORAZEPAM 1 MG TABLET GT PRN (11:03)
[2017-08-12 16:00] VITALS: BP 90/40
--- NOTE | 2017-08-12 16:30 | NUR ---
MS RN NOTE: INFORMED DR. MANJIT KABA RE: THE PATIENT'S BP @ 1600 90/40. RECHECKED IT WITH MANUAL BP AND IT WAS 104/[address] KABA WITH NO NEW ORDER.
[2017-08-12] MEDS: DONEPEZIL 5 MG TABLET PO SCH (17:31)
--- NOTE | 2017-08-12 19:32 | NUR ---
MS RN NOTES RECEIVED PT ON BED. SLEEPING, A/OX2 CONFUSED AND AGITATED. ON RESTRAINTS. ON NASAL CANNULA 3LPM SATURATING WELL. IV ACCESS ON DIAMOND MIDLINE. PATENT AND INTACT. GTUBE FEEDING ON JEVITY 40CC/HR NO RESIDUAL. HEAD OF BED ELEVATED. SIDE RAILS UP. CALL LIGHT WITHIN REACH. BED ALARM ON. WILL CONTINUE TO MONITOR PT CLOSELY.
[2017-08-12 20:00] VITALS: BP 127/65
[2017-08-12 20:28] VITALS: BP 127/65
[2017-08-12 21:00] VITALS: BP 127/65
[2017-08-12] MEDS: TRAZODONE 50 MG TABLET PO SCH (21:02)
[2017-08-12] MEDS: OLANZAPINE 5 MG TABLET GT SCH (21:05)
[2017-08-12] MEDS: LORAZEPAM INJ 2 MG/ML VIAL IV PRN (22:01)
--- NOTE | 2017-08-12 22:01 | NUR ---
MS RN NOTES PT AGITATED TRYING TO GET OUT OF BED. WILL GIVE ATIVAN IV FOR AGITATION AND ANXIETY
[2017-08-13 04:00] VITALS: BP 129/59
[2017-08-13] MEDS: JEVITY 1.2 CAL 1,000 ML BOTTLE GT PRN (04:24)
[2017-08-13 05:00] VITALS: BP 129/59
[2017-08-13 05:21] LABS: BASOPHILS % (AUTO) 0.2 % (0.0-2.0); EOSINOPHILS % (AUTO) 2.7 % (0.0-6.0); HEMATOCRIT 27 % (39-51); LYMPHOCYTES % (AUTO) 11.7 % (20.0-44.0); MEAN CORPUSCULAR HGB CONC 33 g/dl (31.0-36.0); MEAN CORPUSCULAR VOLUME 89 fL (80-96); MONOCYTES # (AUTO) 0.8 /CMM (0.1-1.30); MONOCYTES % (AUTO) 8.7 % (2.0-12.0); NEUTROPHILS # (AUTO) 6.8 /CMM (1.8-8.9); NEUTROPHILS % (AUTO) 76.7 % (43.0-81.0); PLATELET COUNT (AUTO) 207 /CMM (150-450); RDW COEFFICIENT OF VARIATION 14.6 (11.5-15.0); RED BLOOD CELL COUNT(AUTO) 3.06 MIL/uL (4.5-6.0); WHITE BLOOD COUNT (AUTO) 8.8 K/uL (4.3-11.0)
[2017-08-13] MEDS: PIPERACILLIN /TAZOBACTAM 3.375 G in IV D5W 50 ML IV SCH (05:26)
[2017-08-13 05:38] LABS: CALCIUM, SERUM 8.2 mg/dL (8.5-10.1); CARBON DIOXIDE 28 mmol/L (21-32); CHLORIDE 111 mmol/L (98-107); CREATININE 0.7 mg/dL (0.6-1.3); GLUCOSE 107 mg/dL (74-106); PHOSPHORUS 2.5 mg/dL (2.5-4.9); POTASSIUM 4.9 mmol/L (3.5-5.1); SODIUM SERUM 143 mmol/L (136-145); UREA NITROGEN, BLOOD 8 mg/dL (7-18)
[2017-08-13] MEDS: VANCOMYCIN 0.75 GM in IV D5W 250 ML IV SCH (06:14)
--- NOTE | 2017-08-13 07:10 | NUR ---
.RN OPENING NOTES. PT RECEIVED A&0X0, RESTING BUT EASILY WOKEN. PT WITH O2 VIA NC WITH SAO2 98% WITHOUT RESP DISTRESS. PT WITH SWR IN-SITU AND NEURO INTACT. PT WITH HYATT CATH INTACT AND OPERATIONAL DRAINING LITE YELLOW URINE. PT WITH G-TUBE INTACT AND OPERATIONAL AT 50ML/HR. PT REPOSITIONED. WILL CONTINUE TO MONITOR.
--- NOTE | 2017-08-13 07:50 | NUR ---
MS RN NOTES NO ACUTE CHANGES NOTED DURING THE SHIFT. ENDORSE TO THE AM NURSE FOR ALEXEI.
[2017-08-13 08:00] VITALS: BP 105/54
[2017-08-13] MEDS: LEVOTHYROXINE SODIUM 50 MCG TABLET PO SCH (08:02)
[2017-08-13] MEDS: OLANZAPINE 2.5 MG TABLET GT SCH ×3 (08:03→16:42)
[2017-08-13] MEDS: LACTOBACILLUS RHAMNOSUS GG 1 EACH CAP.SPRINK GT SCH ×2 (08:55→16:42)
[2017-08-13] MEDS: VALPROIC ACID 250 MG/5 ML UDC GT SCH ×3 (08:55→16:41)
[2017-08-13] MEDS: PANTOPRAZOLE 40 MG VIAL IV SCH (08:55)
[2017-08-13] MEDS: DOCUSATE SODIUM 100 MG CAPSULE PO SCH ×2 (08:55→16:41)
[2017-08-13] MEDS: ESCITALOPRAM OXALATE (10 MG) 10 MG TABLET GT SCH (08:55)
[2017-08-13] MEDS: Z GUARD REMEDY 2 OZ OINT TP SCH (08:56)
[2017-08-13] MEDS: LEVOFLOXACIN (500MG) 500 MG TABLET GT SCH (08:57)
[2017-08-13] MEDS: ENOXAPARIN SODIUM 40 MG/0.4 ML DISP.SYRIN SQ SCH (09:00)
[2017-08-13 09:33] LABS: BAND % (MANUAL) 8 % (0.0-5.0); LYMPHOCYTES % (MANUAL) 16 % (16-48); MONOCYTES % (MANUAL) 4 % (0-11.0); NEUTROPHILS % (MANUAL) 72 (42-76)
[2017-08-13] MEDS: LORAZEPAM INJ 2 MG/ML VIAL IV PRN (10:24)
[2017-08-13] MEDS: ACETAMINOPHEN 650 MG/20.3 ML UDC NG PRN (10:25)
--- NOTE | 2017-08-13 12:00 | NUR ---
RN NOTES. PT CONFUSED, RESTLESS AND YELLING. PT MADE BM, PRN ATIVAN ADMINISTERED. PT CLEANED, REPOSITIONED WITH HEELS FLOATED FOR OFFLOADING. P NOW COMFORTABLE AND RESTING WITHOUT S/S OF DISTRESS OR DISCOMFORT.
[2017-08-13 13:00] VITALS: BP 97/57
[2017-08-13 16:00] VITALS: BP 93/53
[2017-08-13] MEDS: DONEPEZIL 5 MG TABLET PO SCH (17:21)
[2017-08-13] MEDS: HYDROCODONE/APAP 5/325MG 1 EACH TABLET GT PRN (17:22)
--- NOTE | 2017-08-13 18:10 | NUR ---
RN CLOSING NOTES. PT A&0X0, RESTING. PT WITH O2 VIA NC AND IS WITHOUT S/S OF RESP DISTRESS OR PAIN/DISCOMFORT. PT WITH SWR IN-SITU AND NEURO INTACT. PT WITH HYATT CATH INTACT AND OPERATIONAL DRAINING LITE YELLOW URINE. PT WITH G-TUBE INTACT AND OPERATIONAL AT 50ML/HR. PT BED IN LOWEST LOCKED POSITION WITH HNADRAILSX4 AND CALL TORIBIO WITHIN REACH. WOUND CARE COMPLETED ORDERED. PT REPOSITIONED Q2HR OR MORE FREQUENT, HEELS KEPT OFFLOADED WITH EXTRA PILLOWS. ALL DAY NURSE DUTIES ATTENDED TO AND PT IS WITHOUT CONCERN OR COMPLAINT AT THIS TIME. WILL ENDORSE TO NIGHT NURSE AT BEDSIDE FOR ALEXEI.
[2017-08-13 20:00] VITALS: BP 106/54
--- NOTE | 2017-08-13 20:00 | NUR ---
YORDY RN NOTES RECEIVED BEDSIDE REPORT FROM AM NURSE. PT A&0X0, RESTING. PT WITH O2 VIA NC AND IS WITHOUT S/S OF RESP DISTRESS OR PAIN/DISCOMFORT. PT NEURO INTACT. PT WITH HYATT CATH INTACT AND OPERATIONAL DRAINING LITE YELLOW URINE. PT WITH G-TUBE INTACT AND OPERATIONAL AT 50ML/HR. HOB ELEVATED AT ALL TIME. PT BED IN LOWEST LOCKED POSITION WITH SIDE RAILS UP X4 AND CALL LIGHT WITHIN REACH. PT REPOSITIONED, HEELS KEPT OFFLOADED WITH EXTRA PILLOWS. WILL CONT. TO MONITOR.
[2017-08-13] MEDS: OLANZAPINE 5 MG TABLET GT SCH (20:15)
[2017-08-13] MEDS: TRAZODONE 50 MG TABLET PO SCH (22:11)
[2017-08-14] MEDS: ACETAMINOPHEN 650 MG/20.3 ML UDC NG PRN (01:06)
[2017-08-14] MEDS: LORAZEPAM INJ 2 MG/ML VIAL IV PRN ×2 (01:06→11:30)
--- NOTE | 2017-08-14 01:31 | NUR ---
YORDY RN NOTES PT IS AWAKE AND AGITATED, PRN MEDICATIONS ARE ADMINISTERED AND WOUND CARE COMPLETED ORDERED.
[2017-08-14 04:00] VITALS: BP 117/68
[2017-08-14] MEDS: JEVITY 1.2 CAL 1,000 ML BOTTLE GT PRN (06:27)
[2017-08-14 06:30] LABS: CALCIUM, SERUM 8.4 mg/dL (8.5-10.1); CARBON DIOXIDE 31 mmol/L (21-32); CHLORIDE 107 mmol/L (98-107); CREATININE 0.7 mg/dL (0.6-1.3); GLUCOSE 65 mg/dL (74-106); MAGNESIUM 2.1 mg/dL (1.8-2.4); SODIUM SERUM 143 mmol/L (136-145); UREA NITROGEN, BLOOD 12 mg/dL (7-18)
[2017-08-14] MEDS: Z GUARD REMEDY 2 OZ OINT TP SCH (06:33)
--- NOTE | 2017-08-14 07:45 | NUR ---
RN NOTE RECEIVED PATIENT IN BED, ASLEEP, ALERT TO TACTILE STIMULI. BREATHING EVEN AND UNLABORED WITH NO DISTRESS NOTED. CURRENTLY ON O2 3L VIA NC AND SATURATING WELL RIGHT UPPER ARM MIDLINE INTACT AND PATENT. PATIENT NOTED WITH BOTH SOFT WRIST RESTRAINTS FOR SAFETY, WILL CONTINUE TO REMOVE AND CHECK CIRCULATION Q2H. BED LOCKED AND LOW POSITION. PLACED CALL LIGHT WITHIN REACH. WILL CONTINUE TO MONITOR.
[2017-08-14 08:00] VITALS: BP 120/57
[2017-08-14] MEDS: LACTOBACILLUS RHAMNOSUS GG 1 EACH CAP.SPRINK GT SCH (08:09)
[2017-08-14] MEDS: ESCITALOPRAM OXALATE (10 MG) 10 MG TABLET GT SCH (08:09)
[2017-08-14] MEDS: LEVOTHYROXINE SODIUM 50 MCG TABLET PO SCH (08:09)
[2017-08-14] MEDS: OLANZAPINE 2.5 MG TABLET GT SCH ×2 (08:09→12:08)
[2017-08-14] MEDS: LEVOFLOXACIN (500MG) 500 MG TABLET GT SCH (08:09)
[2017-08-14] MEDS: VALPROIC ACID 250 MG/5 ML UDC GT SCH ×2 (08:09→12:08)
[2017-08-14] MEDS: PANTOPRAZOLE 40 MG VIAL IV SCH (08:09)
[2017-08-14] MEDS: DOCUSATE SODIUM 100 MG CAPSULE PO SCH (08:10)
[2017-08-14] MEDS: ENOXAPARIN SODIUM 40 MG/0.4 ML DISP.SYRIN SQ SCH (08:11)
--- NOTE | 2017-08-14 15:15 | NUR ---
RN NOTE 82 YEAR OLD MALE DISCHARGED TO [facility] IN STABLE CONDITION. COMPLIANT WITH MEDICATIONS, COOPERATIVE WITH TREATMENT PLANS. MEDICAL TREATMENT PLANS DEFERRED FOR CONTINUAL MONITORING. EDUCATED PATIENT ABOUT AFTER CARE PLAN AND COPIES PROVIDED. RETURNED PERSONAL BELONGINGS TO PATIENT. MEDICATIONS RECONCILED, REPORT GIVEN TO DIDIER AT [facility] FOR CONTINUITY OF CARE. PATIENT UNABLE TO SIGN DISCHARGE PAPERWORK BUT WAS ABLE TO GET SECONDARY RN TO CO SIGN. WOUND PICTURES TAKEN AND DOCUMENTED IN CHART. PATIENT LEFT THE UNIT AT 1515 VIA AMBULANCE.
== END 2017-08-14 15:13 | DRG 871 ==
LOC: ER 03:17 → ICU 04:10 → TELE-TD 08-07 17:34 → TELE1 08-08 12:09 → MEDSG1 08-11 10:03
PROVIDERS: ADMIT Legal Medicine; ATTEND Legal Medicine
PROC: 5A09357 Assistance with Respiratory Ventilation, Less than 24 Consecutive Hours, Continuous Positive Airway Pressure (ICD-10-PCS; principal; 2017-08-06)
PROC: 05H533Z Insertion of Infusion Device into Right Subclavian Vein, Percutaneous Approach (ICD-10-PCS; 2017-08-06)
PROC: B546ZZA Ultrasonography of Right Subclavian Vein, Guidance (ICD-10-PCS; 2017-08-06)
DX: A41.9 Sepsis, unspecified organism (principal); J69.0 Pneumonitis due to inhalation of food and vomit; J96.01 Acute respiratory failure with hypoxia; N17.0 Acute kidney failure with tubular necrosis; E43 Unspecified severe protein-calorie malnutrition; G93.40 Encephalopathy, unspecified; L89.159 Pressure ulcer of sacral region, unspecified stage; Z68.1 Body mass index [BMI] 19.9 or less, adult; E87.0 Hyperosmolality and hypernatremia; L89.222 Pressure ulcer of left hip, stage 2; E86.0 Dehydration; E03.9 Hypothyroidism, unspecified; R65.20 Severe sepsis without septic shock; L89.621 Pressure ulcer of left heel, stage 1; L89.899 Pressure ulcer of other site, unspecified stage; F02.80 Dementia in other diseases classified elsewhere, unspecified severity, without behavioral disturbance, psychotic disturbance, mood disturbance, and anxiety; G30.9 Alzheimer's disease, unspecified; F20.9 Schizophrenia, unspecified; Z98.890 Other specified postprocedural states; F09 Unspecified mental disorder due to known physiological condition; I25.10 Atherosclerotic heart disease of native coronary artery without angina pectoris; I10 Essential (primary) hypertension; D63.8 Anemia in other chronic diseases classified elsewhere; D69.6 Thrombocytopenia, unspecified; E83.42 Hypomagnesemia
CPT/HCPCS: 31720; 36415; 36569; 36600; 71045-TC; 80048-TC; 80076-TC; 80202-TC; 81000-TC; 82803-TC; 83605-TC; 83735-TC; 84100-TC; 84484-TC; 85025-TC; 85730-TC; 87040-TC; 87081-TC; 87086-TC; 90935-TC; 94762-TC; 94799-TC; 99082-TC; A4606; A6248; A6402; A6403; C9113; J0692; J1650; J1956; J2060; J2543; J3370; J3475; J3480; J3490; J7030; J7040; J7042; J7050; J7060; Z7610